=== PATIENT | female | born 1935 | race Caucasian/White ===

== ENCOUNTER 2017-04-18 19:21 | Emergency (ER) | payer MEDICARE, OTHER ==
[~2017-04-18 19:21] MED LIST: CITA20TA19 PO; DIAZ5TAB4 PO; FOSAMAX PO; HYDR-507 PO; INDO75CA PO; LOVA40TA2 PO; VITAMIN D PO; VITAMIN E PO; ZOLP5TAB2 PO
== END 2017-04-18 20:00 | disposition left against medical advice (07) ==
LOC: ER 19:22
DX: Z53.21 Procedure and treatment not carried out due to patient leaving prior to being seen by health care provider (principal)

== ENCOUNTER 2017-04-20 04:13 | Inpatient (IN) | payer MEDICARE, OTHER ==
[~2017-04-20] VITALS: Ht 165.1 cm; Wt 70.3 kg
[2017-04-20] MEDS ORDERED: methylPREDNISolone SOD SUCC 125 MG/2 ML VIAL ONE (04:16)
[2017-04-20] MEDS ORDERED: ALBUTEROL SULFATE 2.5 MG/ 0.5 ML NEBU NEB ONE (04:17)
[2017-04-20] MEDS ORDERED: methylPREDNISolone SOD SUCC 125 MG/2 ML VIAL IV ONE (04:17)
[2017-04-20] MEDS ORDERED: CEFTRIAXONE 1 G VIAL ONE (04:22)
[2017-04-20] MEDS ORDERED: MAGNESIUM SULFATE/D5W 100 ML ONE ×2 (04:22→05:57)
[2017-04-20] MEDS ORDERED: IPRATROPIUM BROMIDE 0.5 MG/2.5 ML NEBU ONE (04:23)
[2017-04-20] MEDS ORDERED: ALBUTEROL SULFATE 2.5 MG/ 0.5 ML NEBU ONE (04:23)
[2017-04-20] MEDS: MAGNESIUM SULFATE/D5W 100 ML IV SCH ×2 (04:28→06:01)
[2017-04-20] MEDS ORDERED: IPRATROPIUM BROMIDE 0.5 MG/2.5 ML NEBU NEB ONE (04:30)
[2017-04-20] MEDS ORDERED: CEFTRIAXONE 1 G in IV DEXTROSE 5% 50 ML IV ONE (04:30)
--- NOTE | 2017-04-20 04:30 | NUR ---
Pt BIB [facility] from home w/ c/o respiratory distress/SOB. Upon arrival, pt sat at 85% on room air RT at bedside along w/ ER MD for MSE. Placed on nonrebreather, monitor, pulse ox per order. EKG completed
--- NOTE | 2017-04-20 04:38 | NUR ---
XRAY at pt bedside.
[2017-04-20 04:44] LABS: CARBON DIOXIDE 24 mmol/L (21-32); CHLORIDE 102 mmol/L (98-107); GLUCOSE 139 mg/dL (74-106); POTASSIUM 3.6 mmol/L (3.5-5.1); UREA NITROGEN, BLOOD 26 mg/dL (7-18)
[2017-04-20] MEDS ORDERED: ASCO500C18 PO (04:47)
[2017-04-20] MEDS ORDERED: CITA20TA11 PO (04:47)
[2017-04-20] MEDS ORDERED: DIAZ5TAB4 PO (04:47)
[2017-04-20] MEDS ORDERED: CEPH250C PO (04:47)
[2017-04-20] MEDS ORDERED: CALC600T12 PO (04:47)
[2017-04-20] MEDS ORDERED: LOVA40TA2 PO (04:47)
[2017-04-20] MEDS ORDERED: AMIT50TA3 PO (04:47)
[2017-04-20] MEDS ORDERED: CYAN10009 PO (04:47)
[2017-04-20] MEDS ORDERED: OMEG1CAP PO (04:47)
[2017-04-20] MEDS ORDERED: NIFE30TA89 PO (04:47)
[2017-04-20] MEDS ORDERED: ZOLP5TAB8 PO (04:47)
[2017-04-20] MEDS ORDERED: VITAMIN E PO (04:47)
[2017-04-20] MEDS ORDERED: INDO25CA PO (04:47)
[2017-04-20] MEDS ORDERED: [UNRECOGNIZED DRUG - CODE] PO (04:47)
[2017-04-20] MEDS ORDERED: HYDR-3326 PO (04:47)
[2017-04-20 04:52] LABS: ABG HCO3 21.9 mmol/L; ABG PCO2 38.7 mmHg (35.0-45.0); ABG PO2 90.9 mmHg (75.0-100.0); ABG SITE LEFT RADIAL; COHb 1.4 % (0.5-1.5); MetHb 0.4 % (0.0-1.5); O2Hb 95.4 % (94.0-97.0)
[2017-04-20 04:56] LABS: ALANINE AMINOTRANSFERASE 23 U/L (14-59); ALKALINE PHOSPHATASE 83 U/L (50-136); ASPARTATE AMINOTRANSFERASE 25 U/L (15-37); BILIRUBIN,TOTAL 0.4 mg/dL (0.2-1.0); CREATINE KINASE, TOTAL 36 U/L (26-192); TOTAL PROTEIN, SERUM 7.3 g/dL (6.4-8.2)
--- NOTE | 2017-04-20 04:59 | NUR ---
Lab at bedside.
[2017-04-20 05:11] LABS: BASOPHILS % (AUTO) 0.1 % (0.0-2.0); EOSINOPHILS # (AUTO) 0.2 K/uL (0.0-0.7); EOSINOPHILS % (AUTO) 1.6 % (0.0-7.0); HEMATOCRIT 40.8 % (31.2-41.9); HEMOGLOBIN 13.7 g/dL (10.9-14.3); LYMPHOCYTES # (AUTO) 1.2 K/uL (20.0-40.0); LYMPHOCYTES % (AUTO) 12.9 % (20.5-51.5); MEAN CORPUSCULAR HEMOGLOBIN 29.8 uug (24.7-32.8); MEAN CORPUSCULAR HGB CONC 34 g/dL (32.3-35.6); MEAN CORPUSCULAR VOLUME 88.7 fL (75.5-95.3); MONOCYTES # (AUTO) 0.8 K/uL (2.0-10.0); NEUTROPHILS # (AUTO) 7.3 K/uL (1.8-8.9); NEUTROPHILS % (AUTO) 77.4 % (38.5-71.5); PLATELET COUNT (AUTO) 163 K/uL (179-408); WHITE BLOOD COUNT (AUTO) 9.4 K/uL (3.8-11.8)
--- NOTE | 2017-04-20 05:19 | NUR ---
RT at bedside.
[2017-04-20] MEDS ORDERED: Z GUARD REMEDY PASTE 57 GM TUBE TOP PRN (06:30)
[2017-04-20] MEDS ORDERED: HYDROCODONE/APAP 5-325MG TABLET PO PRN (06:30)
[2017-04-20] MEDS ORDERED: ONDANSETRON 4 MG/2 ML VIAL IV PRN (06:30)
[2017-04-20] MEDS ORDERED: MAGNESIUM HYDROXIDE 30 ML LIQUID UDC PO PRN (06:30)
[2017-04-20] MEDS ORDERED: LEVOFLOXACIN 750MG/D5W 750 MG in PREMIXED 1 EACH IV SCH (06:30)
--- NOTE | 2017-04-20 06:46 | NUR ---
Pt resting in position of comfort w/ eyes closed. No distress noted at this time. at bedside.
--- NOTE | 2017-04-20 06:58 | NUR ---
Report given to Daisha HEARN.
[2017-04-20] MEDS ORDERED: IOHEXOL 350 100 ML INFUS..BTL ONE (07:02)
[2017-04-20] MEDS ORDERED: IV NORMAL SALINE 100 ML ONE (07:03)
--- NOTE | 2017-04-20 07:15 | NUR ---
Patient is now waiting for transfer to floor after change of shift, nursing hands off report was given to rn charge Edel by previous nurse Jennifer & ZEE Guadarrama, pending admitting papers (roll-over status) by ER regitration/admitting staff at this time. 1st contact w/ pt- sleeping , easily arousable, respiration:nonlabored w/ simple mask at 10liters/min, skin warm and dry, family is at bedside espressing satisfaction with ER care.
[2017-04-20] MEDS ORDERED: LEVOFLOXACIN 750MG/D5W 150 ML IV ONE (07:32)
[2017-04-20] MEDS: IV NS 1000 ML 1,000 ML IV PRN (07:50)
[2017-04-20 08:11] VITALS: BP 137/70
--- NOTE | 2017-04-20 08:25 | NUR ---
Pt received from ER with . Pt stable and nad noted upon admission. Oriented pt to the room and demonstrated proper use of call carrillo. Pt and verbalized understanding.
[2017-04-20 11:46] VITALS: BP 103/60
[2017-04-20] MEDS: methylPREDNISolone SOD SUCC 40 MG/ML VIAL IV SCH ×2 (12:55→16:43)
[2017-04-20] MEDS ORDERED: DIAZEPAM 5 MG TABLET PO PRN (15:30)
[2017-04-20 15:39] VITALS: BP 117/78
--- NOTE | 2017-04-20 15:45 | NUR ---
Telephone consent for Pulmonary VQ Scan signed by Seamus () over the telephone. alert and oriented during our conversation and is aware of the procedure to be done.
--- NOTE | 2017-04-20 17:10 | NUR ---
Pt left for [place] Pulmonary VQ scan via wheelchair with radiologist.
--- NOTE | 2017-04-20 17:51 | NUR ---
Pt returned from [place] Pulmonary VQ with radiologist via wheelchair. Pt stable and nad noted upon returning to the floor.
--- NOTE | 2017-04-20 19:30 | NUR ---
RECEIVED PT AWAKE, ALERT, ORIENTED X3. PT COUGHING. PT AWARE THAT SHE NEEDS TO HAVE URINE SAMPLE. PT SHOWS NO SIGNS OF ACUTE DISTRESS. BED ALARM ON, CALL LIGHT WITHIN REACH. WILL CONTINUE TO MONITOR.
[2017-04-20 20:37] LABS: *BILIRUBIN,URIN NEGATIVE (NEGATIVE); *BLOOD, URINE NEGATIVE (NEGATIVE); *CLARITY,URINE SLIGHTLY CLOUDY (CLEAR); *COLOR,URINE YELLOW (YELLOW); *KETONES,URINE NEGATIVE (NEGATIVE); *PROTEIN,URINE NEGATIVE (NEGATIVE); *UROBILINOGEN,URINE 0.2 E.U./dl (NORMAL); LEUKOCYTE ESTERASE ,URINE NEGATIVE (NEGATIVE); NITRITE, URINE NEGATIVE (NEGATIVE); PH,URINE 5.5 (5.0-8.0); UGLUCOSE NEGATIVE (NEGATIVE)
[2017-04-20 20:57] LABS: BACTERIA,URINE NONE SEEN /HPF (NONE SEEN); RBC,URINE 0-3 /HPF (0-3); SQUAMOUS EPITHELIAL CELL,UR FEW /HPF (NONE SEEN); WBC,URINE 0-3 /HPF (0-3)
[2017-04-20 20:59] VITALS: BP 132/72
[2017-04-20] MEDS: INDOMETHACIN 25 MG CAPSULE PO SCH (21:16)
[2017-04-20] MEDS: OMEGA-3 FATTY ACIDS/FISH OIL CAPSULE PO SCH (21:16)
[2017-04-20] MEDS: ASCORBIC ACID 500 MG TABLET PO SCH (21:17)
[2017-04-20] MEDS: CYANOCOBALAMIN 1,000 MCG TABLET PO SCH (21:17)
[2017-04-20] MEDS: CALCIUM CARBONATE 600 MG TABLET PO SCH (21:18)
[2017-04-20] MEDS: CITALOPRAM 20 MG TABLET PO SCH (21:18)
[2017-04-20] MEDS: AMITRIPTYLINE HCL 50 MG TABLET PO SCH (21:18)
[2017-04-20] MEDS: NIFEdipine XL 30 MG TABSR PO SCH (21:18)
[2017-04-20] MEDS: ATORVASTATIN 10 MG TABLET PO SCH (21:18)
[2017-04-20] MEDS: ENOXAPARIN SODIUM 40 MG/0.4 ML DISP.SYRIN SQ SCH (21:30)
[2017-04-20] MEDS ORDERED: IPRATROPIUM BROMIDE 0.5 MG/2.5 ML NEBU NEB PRN (23:45)
[2017-04-20] MEDS ORDERED: BENZONATATE 100 MG CAPSULE PO ONE (23:45)
--- NOTE | 2017-04-20 23:45 | NUR ---
PT COUGHING CONTINUOUSLY. ORDERED BREATHING TREATMENT FOR PT AND TESSALON MEDICATION.
[2017-04-21] MEDS: ALBUTEROL SULFATE 2.5 MG/3 ML NEBU NEB PRN ×2 (00:06→06:14)
[2017-04-21] MEDS: IPRATROPIUM BROMIDE 0.5 MG/2.5 ML NEBU NEB PRN ×2 (00:06→06:14)
[2017-04-21 00:24] VITALS: BP 138/72
[2017-04-21 04:00] VITALS: BP 118/67
[2017-04-21] MEDS: BENZONATATE 100 MG CAPSULE PO SCH ×3 (06:00→21:40)
--- NOTE | 2017-04-21 06:15 | NUR ---
PT SLEPT INTERMITTENTLY BECAUSE OF COUGHING. BREATHING TREATMENT AND COUGH MEDICATION HELPED. ALL PRESCRIBED MEDICATION GIVEN AND PT TOLERATED IT WELL. CALL LIGHT WITHIN REACH AND BED ALARM ON AND IN LOW POSITION.SAFETY AND COMFORT PROVIDED.
[2017-04-21 06:36] LABS: BASOPHILS % (AUTO) 0.1 % (0.0-2.0); LYMPHOCYTES # (AUTO) 0.6 K/uL (20.0-40.0); LYMPHOCYTES % (AUTO) 4.8 % (20.5-51.5); MEAN CORPUSCULAR HEMOGLOBIN 29.4 uug (24.7-32.8); MEAN CORPUSCULAR HGB CONC 33 g/dL (32.3-35.6); MONOCYTES # (AUTO) 0.5 K/uL (2.0-10.0); MONOCYTES % (AUTO) 4.4 % (0.0-11.0); NEUTROPHILS % (AUTO) 90.7 % (38.5-71.5); PLATELET COUNT (AUTO) 172 K/uL (179-408); RED BLOOD CELL COUNT(AUTO) 3.94 MIL/uL (3.63-4.92)
[2017-04-21 06:53] LABS: CARBON DIOXIDE 26 mmol/L (21-32); CHLORIDE 108 mmol/L (98-107); CHOLESTEROL 123 mg/dL (<200); CREATININE 0.7 mg/dL (0.6-1.3); GLUCOSE 142 mg/dL (74-106); HDL CHOLESTEROL 90 mg/dL (40-60); MAGNESIUM 2.1 mg/dL (1.8-2.4); POTASSIUM 3.6 mmol/L (3.5-5.1); TRIGLYCERIDES 46 MG/DL (30-150); UREA NITROGEN, BLOOD 23 mg/dL (7-18)
[2017-04-21 06:55] LABS: HEMATOCRIT 34.7 % (31.2-41.9); HEMOGLOBIN 11.6 g/dL (10.9-14.3); WHITE BLOOD COUNT (AUTO) 12.2 K/uL (3.8-11.8)
[2017-04-21 07:06] LABS: THYROID STIMULATING HORMONE 0.524 mIU/mL (0.358-3.740)
[2017-04-21] MEDS: methylPREDNISolone SOD SUCC 40 MG/ML VIAL IV SCH ×3 (08:36→17:34)
[2017-04-21 11:45] VITALS: BP 123/66
[2017-04-21 15:57] VITALS: BP_SYST 102; BP_SYST 137; BP_DIAS 67; BP_DIAS 84
[2017-04-21] MEDS: ALBUTEROL SULFATE 2.5 MG/ 0.5 ML NEBU NEB SCH ×3 (17:03→22:32)
[2017-04-21] MEDS: IPRATROPIUM BROMIDE 0.5 MG/2.5 ML NEBU NEB SCH ×3 (17:03→22:32)
--- NOTE | 2017-04-21 18:09 | NUR ---
PT OBSERVED RESTING IN BED CALM, COOPERATIVE, NEW IV IN RIGHT FOREARM 20 GAUGE INTACT. NO SIGNS OF RESPIRATORY DISTRESS. CONTINUE TO MONITOR.
--- NOTE | 2017-04-21 19:15 | NUR ---
RECEIVED PT AWAKE, ALERT AND ORIENTEDX4. PT IS ON HER BREATHING TREATMENT. PT SAID SHE'S THINKING SHE MIGHT HAVE SORETHROAT. PT HAS COUGH.CALL LIGHT WITHIN REACH. BED ALARM ON AND IN LOW POSITION. WILL CONTINUE TO MONITOR.
[2017-04-21 20:00] VITALS: BP 130/57
[2017-04-21] MEDS: CYANOCOBALAMIN 1,000 MCG TABLET PO SCH (21:00)
[2017-04-21] MEDS: ASCORBIC ACID 500 MG TABLET PO SCH (21:36)
[2017-04-21] MEDS: OMEGA-3 FATTY ACIDS/FISH OIL CAPSULE PO SCH (21:37)
[2017-04-21] MEDS: INDOMETHACIN 25 MG CAPSULE PO SCH (21:37)
[2017-04-21] MEDS: CALCIUM CARBONATE 600 MG TABLET PO SCH (21:37)
[2017-04-21] MEDS: ATORVASTATIN 10 MG TABLET PO SCH (21:37)
[2017-04-21] MEDS: NIFEdipine XL 30 MG TABSR PO SCH (21:39)
[2017-04-21] MEDS: AMITRIPTYLINE HCL 50 MG TABLET PO SCH (21:39)
[2017-04-21] MEDS: CITALOPRAM 20 MG TABLET PO SCH (21:39)
[2017-04-21] MEDS: ENOXAPARIN SODIUM 40 MG/0.4 ML DISP.SYRIN SQ SCH (21:50)
[2017-04-21] MEDS: IV NS 1000 ML 1,000 ML IV PRN (23:18)
[2017-04-22] VITALS: BP 130/64
[2017-04-22] MEDS: ACETAMINOPHEN 325 MG TABLET PO PRN (00:26)
--- NOTE | 2017-04-22 01:13 | NUR ---
PT TEMP WAS 99.3. TYLENOL GIVEN TO THE PT.TEMP SUBSIDE TO 98"
[2017-04-22] MEDS: ALBUTEROL SULFATE 2.5 MG/ 0.5 ML NEBU NEB SCH ×6 (02:35→23:00)
[2017-04-22] MEDS: IPRATROPIUM BROMIDE 0.5 MG/2.5 ML NEBU NEB SCH ×6 (02:35→23:00)
[2017-04-22 04:00] VITALS: BP 144/72
[2017-04-22] MEDS: BENZONATATE 100 MG CAPSULE PO SCH ×3 (05:14→21:24)
--- NOTE | 2017-04-22 06:03 | NUR ---
PT SLEPT THROUGHOUT THE SHIFT. PT SHOWS NO SIGNS OF RESPIRATORY DISTRESS. PT IS AFEBRILE. ALL PRESCRIBED MEDICATION GIVEN. PT TOLERATED IT WELL. PT CALL LIGHT WITHIN REACH. BED ALARM ON AND IN LOW POSITION. SAFETY AND COMFORT PROVIDED.CONTINUE TO CARE OF PLAN.
[2017-04-22 06:25] LABS: BASOPHILS % (AUTO) 0.1 % (0.0-2.0); HEMATOCRIT 33.5 % (31.2-41.9); HEMOGLOBIN 11.3 g/dL (10.9-14.3); LYMPHOCYTES # (AUTO) 0.7 K/uL (20.0-40.0); LYMPHOCYTES % (AUTO) 6.4 % (20.5-51.5); MEAN CORPUSCULAR HEMOGLOBIN 29.6 uug (24.7-32.8); MEAN CORPUSCULAR HGB CONC 34 g/dL (32.3-35.6); MEAN CORPUSCULAR VOLUME 87.6 fL (75.5-95.3); MONOCYTES # (AUTO) 0.7 K/uL (2.0-10.0); MONOCYTES % (AUTO) 6.5 % (0.0-11.0); NEUTROPHILS # (AUTO) 9.8 K/uL (1.8-8.9); PLATELET COUNT (AUTO) 184 K/uL (179-408); RED BLOOD CELL COUNT(AUTO) 3.82 MIL/uL (3.63-4.92); WHITE BLOOD COUNT (AUTO) 11.3 K/uL (3.8-11.8)
[2017-04-22 06:35] LABS: CARBON DIOXIDE 26 mmol/L (21-32); CHLORIDE 107 mmol/L (98-107); CREATININE 0.7 mg/dL (0.6-1.3); GLUCOSE 134 mg/dL (74-106); PHOSPHOROUS 2.3 mg/dL (2.5-4.9); POTASSIUM 3.3 mmol/L (3.5-5.1); UREA NITROGEN, BLOOD 16 mg/dL (7-18)
--- NOTE | 2017-04-22 06:55 | NUR ---
ENDORSED TO DAYSHIFT NURSE THAT THE POTASSIUM WAS 3.3 L FROM 3.6 YESTERDAY AND PHOSPHORUS WAS 2.3L FROM 3.0.
[2017-04-22] MEDS: LEVOFLOXACIN 750MG/D5W 750 MG in PREMIXED 1 EACH IV SCH (07:54)
[2017-04-22] MEDS: BENZOCAINE/MENTH/CETYLPYRD LOZENGE MM PRN ×4 (07:54→17:18)
[2017-04-22] MEDS: methylPREDNISolone SOD SUCC 40 MG/ML VIAL IV SCH ×3 (08:00→17:17)
[2017-04-22] MEDS ORDERED: POTASSIUM CHLORIDE 20 MEQ TAB.PRT.SR PO ONE (11:15)
[2017-04-22 12:01] VITALS: BP 132/63
[2017-04-22] MEDS: ACETYLCYSTEINE 20% 800 MG/4 ML VIAL NEB SCH ×3 (15:30→23:00)
[2017-04-22 16:15] VITALS: BP 145/76
[2017-04-22] MEDS ORDERED: NEUTRA PHOS PACKET PO ONE (16:15)
--- NOTE | 2017-04-22 18:06 | NUR ---
THE PLAN FOR TODAY WAS TO JOSE PT OXYGEN. PT WAS ON 5L OF OXYGEN AND IS NOW ON 2.5L. PT SHOWS NO SIGNS OF RESPIRATORY DISTRESS AT THIS TIME. PT HAS SORE THROAT AND COUGHING, PT GIVEN CEPACOL, MEDICATION EFFECTIVE.PT PERFORMS ADLS TOLERATED. PT WORKED WITH PT TODAY AND STATES THAT PT IS MINIMAL ASSIST. PT IS UNSTEADY. CONTINUE TO MONITOR.
[2017-04-22] MEDS: IV NS 1000 ML 1,000 ML IV PRN (18:50)
--- NOTE | 2017-04-22 19:35 | NUR ---
RECEIVED PT IN BED. AWAKE, ALERT AND ORIENTED X4. CALM AND PLEASANT. JUST STARTED TO EAT HER DINNER. DENIES ANY PAIN OR SOB. o2 AT 2.5LPM VIA NC IN PLACE. IV SITE INTACT AND PATENT , IVF INFUSING. BED ON LOW POSITION AND BED ALARM ON. SAFETY MEASURE INITIATED. CALL SPARKS WITHIN REACHED.
[2017-04-22 20:30] VITALS: BP 149/61
[2017-04-22] MEDS: ASCORBIC ACID 500 MG TABLET PO SCH (20:35)
[2017-04-22] MEDS: OMEGA-3 FATTY ACIDS/FISH OIL CAPSULE PO SCH (20:35)
[2017-04-22] MEDS: INDOMETHACIN 25 MG CAPSULE PO SCH (20:35)
[2017-04-22] MEDS: CALCIUM CARBONATE 600 MG TABLET PO SCH (20:36)
[2017-04-22] MEDS: CITALOPRAM 20 MG TABLET PO SCH (20:36)
[2017-04-22] MEDS: AMITRIPTYLINE HCL 50 MG TABLET PO SCH (20:36)
[2017-04-22] MEDS: CYANOCOBALAMIN 1,000 MCG TABLET PO SCH (20:36)
[2017-04-22] MEDS: NIFEdipine XL 30 MG TABSR PO SCH (20:36)
[2017-04-22] MEDS: ATORVASTATIN 10 MG TABLET PO SCH (20:36)
[2017-04-22] MEDS: ENOXAPARIN SODIUM 40 MG/0.4 ML DISP.SYRIN SQ SCH (20:39)
[2017-04-22 23:52] VITALS: BP 153/78
--- NOTE | 2017-04-23 | NUR ---
Patient asleep. Not in acute distress. on contious O2 at 3LPM via NC. Sinus rhtym on Tele 90/min. appears comfortable in bed. iv site intact and patent. IV fluids infusing. Continue to monitor. Safety precaution maintained. Call carrillo within reached.
[2017-04-23] MEDS: ACETAMINOPHEN 325 MG TABLET PO PRN (02:49)
[2017-04-23] MEDS: BENZOCAINE/MENTH/CETYLPYRD LOZENGE MM PRN ×3 (02:50→10:52)
[2017-04-23] MEDS: ALBUTEROL SULFATE 2.5 MG/ 0.5 ML NEBU NEB SCH ×7 (02:58→22:58)
[2017-04-23] MEDS: IPRATROPIUM BROMIDE 0.5 MG/2.5 ML NEBU NEB SCH ×7 (02:58→22:58)
[2017-04-23 04:00] VITALS: BP 148/78
[2017-04-23] MEDS: BENZONATATE 100 MG CAPSULE PO SCH ×3 (05:20→21:03)
--- NOTE | 2017-04-23 06:00 | NUR ---
pt alert and oriented x4. Slept well last night. Denies any pain or SOB. On O2 taper to 2LPM via NC. O2 sat at 95%. With occasional non-productive cough noted. Cephacol lozenges given prn and effective. Denies any chest pain. Minimal edema on BLE. Sinus tach on tele. 91/min. IV on right FA intact and patent. IV infusing. Safety and comfort measure maintained throughout shift.
[2017-04-23 07:06] LABS: CARBON DIOXIDE 31 mmol/L (21-32); CHLORIDE 105 mmol/L (98-107); CREATININE 0.7 mg/dL (0.6-1.3); GLUCOSE 113 mg/dL (74-106); PHOSPHOROUS 3.2 mg/dL (2.5-4.9); POTASSIUM 3.5 mmol/L (3.5-5.1); UREA NITROGEN, BLOOD 14 mg/dL (7-18)
[2017-04-23] MEDS: ACETYLCYSTEINE 20% 800 MG/4 ML VIAL NEB SCH ×3 (07:35→22:58)
--- NOTE | 2017-04-23 07:40 | NUR ---
MUCOMYST NOT GIVEN AT THIS TIME. MUCOMYST NOT AVAILABLE IN [facility]. PHARMACY AWARE.
[2017-04-23 08:00] VITALS: BP 144/80
[2017-04-23] MEDS: methylPREDNISolone SOD SUCC 40 MG/ML VIAL IV SCH ×3 (08:00→16:13)
[2017-04-23] MEDS ORDERED: POTASSIUM CHLORIDE 20 MEQ TAB.PRT.SR PO ONE (10:30)
[2017-04-23 12:00] VITALS: BP 140/78
[2017-04-23 16:00] VITALS: BP_SYST 128; BP_SYST 160; BP_DIAS 54; BP_DIAS 84
--- NOTE | 2017-04-23 18:16 | NUR ---
PT OBSERVED IN ROOM RESTING WITH AT THE BEDSIDE. PT SHOWS NO SIGNS OF DISTRESS. TELEMETRY D/C. PT CALM, COOPERATIVE, MEDICATION COMPLIANT, BED AT LOWEST LOCKED POSITION. O2 TAPERED PER ORDER AND RT . PT IS ON 2L NASAL CANULA. O2 SATURATION AT 96-99%.CONTINUE TO MONITOR.
[2017-04-23 20:00] VITALS: BP 135/90
--- NOTE | 2017-04-23 20:00 | NUR ---
RECEIVED PATIENT AWAKE IN BED. PATIENT IS A/O X4. VERY PLEASANT WHEN APPROACHED. DENIES ANY PAIN OR DISCOMFORT. NO RESP. DISTRESS NOTED. ON O2 2L NC SATING WELL. IVF INFUSING WELL TO RIGHT FA. VS WNL. CALL LIGHT IN REACH. ALL NEEDS ATTENDED. WILL CONTINUE TO MONITOR AND ASSESS.
[2017-04-23] MEDS: AMITRIPTYLINE HCL 50 MG TABLET PO SCH (20:42)
[2017-04-23] MEDS: OMEGA-3 FATTY ACIDS/FISH OIL CAPSULE PO SCH (20:42)
[2017-04-23] MEDS: INDOMETHACIN 25 MG CAPSULE PO SCH (20:42)
[2017-04-23] MEDS: CALCIUM CARBONATE 600 MG TABLET PO SCH (20:42)
[2017-04-23] MEDS: CITALOPRAM 20 MG TABLET PO SCH (20:42)
[2017-04-23] MEDS: NIFEdipine XL 30 MG TABSR PO SCH (20:43)
[2017-04-23] MEDS: ASCORBIC ACID 500 MG TABLET PO SCH (20:43)
[2017-04-23] MEDS: CYANOCOBALAMIN 1,000 MCG TABLET PO SCH (20:43)
[2017-04-23] MEDS: ATORVASTATIN 10 MG TABLET PO SCH (20:43)
[2017-04-23] MEDS: ENOXAPARIN SODIUM 40 MG/0.4 ML DISP.SYRIN SQ SCH (20:44)
[2017-04-24] MEDS: IV NS 1000 ML 1,000 ML IV PRN (01:30)
[2017-04-24] MEDS: IPRATROPIUM BROMIDE 0.5 MG/2.5 ML NEBU NEB SCH ×4 (02:49→15:20)
[2017-04-24] MEDS: ALBUTEROL SULFATE 2.5 MG/ 0.5 ML NEBU NEB SCH ×4 (02:49→15:20)
[2017-04-24 04:00] VITALS: BP 152/80
[2017-04-24] MEDS: BENZONATATE 100 MG CAPSULE PO SCH ×2 (05:15→13:25)
[2017-04-24 06:56] LABS: BASOPHILS % (AUTO) 0.1 % (0.0-2.0); EOSINOPHILS % (AUTO) 0.1 % (0.0-7.0); HEMATOCRIT 38.9 % (31.2-41.9); HEMOGLOBIN 13.1 g/dL (10.9-14.3); LYMPHOCYTES # (AUTO) 1.4 K/uL (20.0-40.0); LYMPHOCYTES % (AUTO) 11.4 % (20.5-51.5); MEAN CORPUSCULAR HEMOGLOBIN 29.5 uug (24.7-32.8); MEAN CORPUSCULAR HGB CONC 34 g/dL (32.3-35.6); MEAN CORPUSCULAR VOLUME 87.5 fL (75.5-95.3); MONOCYTES # (AUTO) 1.1 K/uL (2.0-10.0); MONOCYTES % (AUTO) 8.7 % (0.0-11.0); NEUTROPHILS # (AUTO) 9.6 K/uL (1.8-8.9); NEUTROPHILS % (AUTO) 79.7 % (38.5-71.5); PLATELET COUNT (AUTO) 238 K/uL (179-408); RED BLOOD CELL COUNT(AUTO) 4.45 MIL/uL (3.63-4.92); WHITE BLOOD COUNT (AUTO) 12.1 K/uL (3.8-11.8)
--- NOTE | 2017-04-24 07:01 | NUR ---
PATIENT ASLEEP. NO RESP. DISTRESS NOTED. CONTINUED ON O2 2L NC. CALL LIGHT IN REACH .ALL NEEDS ATTENDED. WILL CONTINUE TO MONITOR.
[2017-04-24 07:15] LABS: ALANINE AMINOTRANSFERASE 38 U/L (14-59); ALKALINE PHOSPHATASE 72 U/L (50-136); ASPARTATE AMINOTRANSFERASE 27 U/L (15-37); BILIRUBIN,TOTAL 0.3 mg/dL (0.2-1.0); CARBON DIOXIDE 26 mmol/L (21-32); CHLORIDE 104 mmol/L (98-107); CREATININE 0.9 mg/dL (0.6-1.3); GLUCOSE 108 mg/dL (74-106); MAGNESIUM 2.1 mg/dL (1.8-2.4); PHOSPHOROUS 3.4 mg/dL (2.5-4.9); POTASSIUM 3.4 mmol/L (3.5-5.1); TOTAL PROTEIN, SERUM 6.7 g/dL (6.4-8.2); UREA NITROGEN, BLOOD 20 mg/dL (7-18)
[2017-04-24] MEDS: ACETYLCYSTEINE 20% 800 MG/4 ML VIAL NEB SCH (07:24)
--- NOTE | 2017-04-24 07:30 | NUR ---
Received client in bed awake, alert and oriented times four. Client is noted to be reading a book and noted with a dry, non productive cough. No signs and symptoms of SOB, distress or discomfort. Client states she is in no pain at this time. IV hydration running. Bed at lowest position for safety and call light within reach for assistance.
[2017-04-24] MEDS: methylPREDNISolone SOD SUCC 40 MG/ML VIAL IV SCH ×2 (08:06→12:26)
[2017-04-24] MEDS: LEVOFLOXACIN 750MG/D5W 750 MG in PREMIXED 1 EACH IV SCH (08:06)
--- NOTE | 2017-04-24 09:15 | NUR ---
Noted client with physical therapist. Client is seen walking without assistive devices and stating at 98% at 2L
[2017-04-24 09:43] LABS: LYMPHOCYTES % (MANUAL) 19 % (20-40); MONOCYTES % (MANUAL) 7 % (2-10); NEUTROPHILS % (MANUAL) 74 % (42-75)
[2017-04-24 11:06] VITALS: BP 128/66
--- NOTE | 2017-04-24 13:21 | NUR ---
Client is 96% at RA as request by Dr before discharge orders
[2017-04-24] MEDS ORDERED: POTASSIUM CHLORIDE 20 MEQ TAB.PRT.SR PO ONE (14:30)
[2017-04-24 15:11] VITALS: BP 142/70
--- NOTE | 2017-04-24 15:20 | NUR ---
PT REFUSED ALBUTEROL/ATROVENT TX. PT IS GETTING READY TO BE DISCHARGED. STATED THAT SHE DOES NOT WANT THE TX BEFORE SHE LEAVES. NO SOB NOTED.
[2017-04-24] MEDS: ACETAMINOPHEN 325 MG TABLET PO PRN (15:30)
[2017-04-24] MEDS ORDERED: LEVO500T2 PO (15:48)
[2017-04-24] MEDS ORDERED: ALBU6.7H INH (15:48)
[2017-04-24] MEDS ORDERED: ACID1TAB4 PO (15:48)
[2017-04-24] MEDS ORDERED: LOVA20TA2 PO (15:48)
[2017-04-24] MEDS ORDERED: METH4TAB3 PO (15:48)
--- NOTE | 2017-04-24 16:30 | NUR ---
Client is being discharge with discharge orders from MD. Client is in stable condition with no SOB, pain, distress or discomfort noted. VS WNL. Client is being guided down satires via wheelchair with the assistance of a MORTGAGE OPERATIONS MANAGER. Client's Seamus will be providing transportation home. Client is aware that she is discharged with home health, all papers signed for and petit arrangement given to her to take home
== END 2017-04-24 16:30 | disposition home health service (06) | DRG 871 ==
LOC: ER 04:15 → TELE 06:20 → MED 04-23 15:56
PROVIDERS: ADMIT Nurse Practitioner Acute Care; ATTEND Nurse Practitioner Acute Care
DX: A41.9 Sepsis, unspecified organism (principal); J18.9 Pneumonia, unspecified organism; J96.01 Acute respiratory failure with hypoxia; G93.41 Metabolic encephalopathy; R65.20 Severe sepsis without septic shock; Z79.899 Other long term (current) drug therapy; E78.5 Hyperlipidemia, unspecified; G89.29 Other chronic pain; M06.9 Rheumatoid arthritis, unspecified; M54.5 Low back pain; Z91.013 Allergy to seafood; T49.0X5A Adverse effect of local antifungal, anti-infective and anti-inflammatory drugs, initial encounter; Y92.89 Other specified places as the place of occurrence of the external cause; R73.9 Hyperglycemia, unspecified; F32.9 Major depressive disorder, single episode, unspecified; F41.9 Anxiety disorder, unspecified; N32.81 Overactive bladder; R79.1 Abnormal coagulation profile; E83.39 Other disorders of phosphorus metabolism; E87.6 Hypokalemia; I10 Essential (primary) hypertension
CPT/HCPCS: 36415; 36600; 70030-TC; 71045; 78579; 83605; 83735; 84100; 84443; 85025; 85610; 87040; 87086; 93005; 94640; 94664; 97116; 97530; A4663; A9540; A9567; J0696; J1650; J1956; J2920; J2930; J3475; J3490; J3590; J7030; J7060; Q9967

== ENCOUNTER 2018-04-09 06:53 | Emergency (ER) | payer MEDICARE, OTHER ==
[~2018-04-09] VITALS: Ht 162.6 cm; Wt 68.0 kg
[~2018-04-09 06:53] MED LIST changes: +ACID1TAB4 PO; +ALBU6.7H INH; +AMIT50TA3 PO; +ASCO500C18 PO; +CALC600T12 PO; +CITA20TA16 PO; -CITA20TA19 PO; +CYAN-51 PO; -FOSAMAX PO; +HYDR-3326 PO; -HYDR-507 PO; +INDO25CA18 PO; -INDO75CA PO; +LEVO500T2 PO; +LOVA20TA2 PO; -LOVA40TA2 PO; +METH4TAB3 PO; +NIFE30TA89 PO; +OMEG1CAP PO; -VITAMIN D PO; -VITAMIN E PO; -ZOLP5TAB2 PO; +ZOLP5TAB8 PO; +[UNRECOGNIZED DRUG - CODE] PO
--- NOTE | 2018-04-09 07:23 | NUR ---
pt is in room #2a. dr Jimenez evaluated the pt.
--- NOTE | 2018-04-09 08:15 | NUR ---
PT WAS D/C'D TO HOME, D/C INSTRUCTIONS GIVEN TO THE PT. GAIT IS STABLE. NO S/S OF DISTRESS AT THIS TIME.
[2018-04-09 08:16] VITALS: BP 132/82
== END 2018-04-09 08:17 | disposition home or self-care (01) ==
LOC: ER 06:55
DX: S40.011A Contusion of right shoulder, initial encounter (principal); E78.00 Pure hypercholesterolemia, unspecified; I11.0 Hypertensive heart disease with heart failure; I50.9 Heart failure, unspecified; G89.29 Other chronic pain; M54.9 Dorsalgia, unspecified; Z88.0 Allergy status to penicillin; Z88.1 Allergy status to other antibiotic agents; Z88.8 Allergy status to other drugs, medicaments and biological substances; Z91.013 Allergy to seafood; Z79.2 Long term (current) use of antibiotics; Z79.899 Other long term (current) drug therapy; W10.9XXA Fall (on) (from) unspecified stairs and steps, initial encounter; Y93.89 Activity, other specified; Y92.89 Other specified places as the place of occurrence of the external cause; Y99.8 Other external cause status
CPT/HCPCS: 70450; 73030; A4663

== ENCOUNTER 2018-07-05 19:40 | Inpatient (IN) | payer MEDICARE, OTHER ==
[~2018-07-05] VITALS: Ht 165.1 cm; Wt 66.7 kg
[~2018-07-05 19:40] MED LIST changes: -CYAN-51 PO; +CYAN10009 PO
[2018-07-05] MEDS ORDERED: CHARCOAL ACTIVATED (WITHOUT SORBITOL) 50 G/240 ML BOTTLE ONE ×2 (19:50→19:51)
[2018-07-05] MEDS ORDERED: CHARCOAL ACTIVATED (WITHOUT SORBITOL) 50 G/240 ML BOTTLE PO ONE (20:00)
--- NOTE | 2018-07-05 20:05 | NUR ---
Called Quarrying Manager for sitter, states no sitter available at this time. Adviced to use security for now. Called security to watch patient.
[2018-07-05 20:07] LABS: BASOPHILS # (AUTO) 0.1 K/uL (0.0-8.0); EOSINOPHILS # (AUTO) 0.2 K/uL (0.0-0.7); EOSINOPHILS % (AUTO) 3.4 % (0.0-7.0); HEMATOCRIT 43.8 % (31.2-41.9); HEMOGLOBIN 14.4 g/dL (10.9-14.3); LYMPHOCYTES # (AUTO) 1.3 K/uL (20.0-40.0); LYMPHOCYTES % (AUTO) 26.3 % (20.5-51.5); MEAN CORPUSCULAR HGB CONC 33 g/dL (32.3-35.6); MEAN CORPUSCULAR VOLUME 88.2 fL (75.5-95.3); MONOCYTES # (AUTO) 0.4 K/uL (2.0-10.0); MONOCYTES % (AUTO) 7.2 % (0.0-11.0); NEUTROPHILS # (AUTO) 3.1 K/uL (1.8-8.9); NEUTROPHILS % (AUTO) 62.1 % (38.5-71.5); PLATELET COUNT (AUTO) 205 K/uL (179-408); RED BLOOD CELL COUNT(AUTO) 4.97 MIL/uL (3.63-4.92)
[2018-07-05 20:09] LABS: CARBON DIOXIDE 22 mmol/L (21-32); CHLORIDE 105 mmol/L (98-107); CREATININE 1.1 mg/dL (0.6-1.3); GLUCOSE 110 mg/dL (74-106); POTASSIUM 4.2 mmol/L (3.5-5.1); UREA NITROGEN, BLOOD 24 mg/dL (7-18)
--- NOTE | 2018-07-05 20:10 | NUR ---
Security at bedside.
[2018-07-05 20:15] LABS: ACETAMINOPHEN 25.8 ug/mL (10-30); ALANINE AMINOTRANSFERASE 28 U/L (14-59); ALKALINE PHOSPHATASE 77 U/L (50-136); ASPARTATE AMINOTRANSFERASE 25 U/L (15-37); BILIRUBIN,DIRECT 0.1 mg/dL (0.0-0.2); BILIRUBIN,TOTAL 0.3 mg/dL (0.2-1.0); TOTAL PROTEIN, SERUM 7.4 g/dL (6.4-8.2)
[2018-07-05 20:17] LABS: ETHANOL < 3 MG/DL (0-0)
--- NOTE | 2018-07-05 20:30 | NUR ---
Pt provided urine sample, sent to lab.
--- NOTE | 2018-07-05 20:34 | NUR ---
Clarrification: Patient took 8 tablets of Percocet 10/325mg
--- NOTE | 2018-07-05 20:37 | NUR ---
Pt desatting to 86% on room air, placed pt on O2@2L/min via nasal cannula. MD notified.
--- NOTE | 2018-07-05 20:42 | NUR ---
Srinivas VERNON Sitter at bedside.
[2018-07-05 20:47] LABS: *AMPHETAMINE, URINE NEGATIVE (NEGATIVE); *BARBITURATE, URINE NEGATIVE (NEGATIVE); *CANNABINOID, URINE NEGATIVE (NEGATIVE); *COCCAINE, URINE NEGATIVE (NEGATIVE); *OPIATE, URINE POSITIVE (NEGATIVE); *PHENCYCLIDINE SCREEN,URINE NEGATIVE (NEGATIVE)
--- NOTE | 2018-07-05 21:05 | NUR ---
Dr. Nguyen speaking with [place] [facility].
--- NOTE | 2018-07-05 22:30 | NUR ---
Xray at bedside.
[2018-07-05] MEDS ORDERED: OXYC-133 PO (23:01)
--- NOTE | 2018-07-05 23:09 | NUR ---
Called [facility] to page Dr. Ernesto Segal.
--- NOTE | 2018-07-05 23:17 | NUR ---
Called Alan [facility] for pt psych evaluation.
--- NOTE | 2018-07-05 23:51 | NUR ---
Alan SAINIW arrived to ER, at bedside for psych evaluation of patient.
--- NOTE | 2018-07-06 01:02 | NUR ---
Called [facility] to page Ashwin Madden NP.
[2018-07-06] MEDS ORDERED: IV NS 1000 ML 1,000 ML IV PRN (01:07)
--- NOTE | 2018-07-06 01:07 | NUR ---
Dr. Nguyen on panel call with Ashwin Madden NP.
[2018-07-06] MEDS ORDERED: ONDANSETRON 4 MG/2 ML VIAL IV PRN (01:15)
[2018-07-06] MEDS ORDERED: MAGNESIUM HYDROXIDE 30 ML LIQUID UDC PO PRN (01:15)
[2018-07-06] MEDS ORDERED: TEMAZEPAM 15 MG CAPSULE PO PRN (01:15)
[2018-07-06] MEDS ORDERED: LORAZEPAM 2 MG/1 ML VIAL IV PRN (01:15)
[2018-07-06] MEDS ORDERED: ACETAMINOPHEN 325 MG TABLET PO PRN (01:15)
--- NOTE | 2018-07-06 01:23 | NUR ---
Report given to Belle HEARN Tele.
--- NOTE | 2018-07-06 02:00 | NUR ---
Received patient from ER. Dx: Acute hypoxic respiratory failure/overdose. Patient is A/Ox4. Able to make needs known. No complaints of pain or SOB, on 2L NC saturating at 97%. Heplock on the left wrist is intact. Patient is ambulatory with assistance, gait is unsteady. Safety measures initiated. Bed is low and locked, Call light is within reach. Will continue with admission process.
[2018-07-06 02:10] VITALS: BP 146/71
--- NOTE | 2018-07-06 06:05 | NUR ---
Patient slept well throughout the night. No signs of acute distress. No complaints of pain or SOB. IVF running on the right forearm. Safety measures given.
--- NOTE | 2018-07-06 07:35 | NUR ---
RECEIVED PATIENT IN BED AWAKE ALERT AND ORIENTED DENIES PAIN OR DISCOMFORTS AT THIS TIE REMAIN ON IVF ORDERED WITH NO S/S OF INFILTERATION ON SITE CALL LIGHTS AND PERSONAL BELONGINGS PLACED WITHIN EASY REACH MADE COMFORTABLE AND WILL CONTINUE TO OBSERVE AND PROVIDE SAFE AND THERAPEUTIC ENVIRONMENTS AT ALL TIMES
[2018-07-06 11:07] VITALS: BP 127/69
--- NOTE | 2018-07-06 11:50 | NUR ---
PATIENT SEEN AND EXAMINED BY DUNG QUEZADA WITH ORDER FOR UA STATED THAT AFTER THE URINE HAS BEED SENT AND CLEARED PATIENT MOST LIKELY WILL BE DISCHARGED HOME TODAY.
[2018-07-06 13:46] LABS: *BILIRUBIN,URIN NEGATIVE (NEGATIVE); *CLARITY,URINE CLEAR (CLEAR); *COLOR,URINE YELLOW (YELLOW); *KETONES,URINE NEGATIVE (NEGATIVE); *UROBILINOGEN,URINE 0.2 E.U./dl (NORMAL); LEUKOCYTE ESTERASE ,URINE 2+ (NEGATIVE); NITRITE, URINE NEGATIVE (NEGATIVE); PH,URINE 5.5 (5.0-8.0); UGLUCOSE NEGATIVE (NEGATIVE)
[2018-07-06 13:50] LABS: *BLOOD, URINE TRACE (NEGATIVE); BACTERIA,URINE MODERATE /HPF (NONE SEEN); RBC,URINE 0-3 /HPF (0-3); SQUAMOUS EPITHELIAL CELL,UR FEW /HPF (NONE SEEN)
--- NOTE | 2018-07-06 13:58 | NUR ---
RESULT OF URINALYSIS OBTAINED FROM THE LAB AND RELAYED TO DUNG PATIENT HAS URINARY TRACT INFECTION PER THE RESULT AND DUNG STATED WILL EVAL AND WRITE PRESCRIPTION PATIENT AWARE AWAITING FOR FINAL ORDERS.
--- NOTE | 2018-07-06 14:50 | NUR ---
PATIENT DISCHARGED PICKED UP BY HER IN SATISFACTORY CONDITION WITH DISCHARGE INSTRUCTIONS AND PRESCRIPTIONS AND HER PERSONAL BELONGINGS AND PATIENT INSTRUCTED TO CONTINUE ATB ORDERED AND CALL FOR AN APPOINTMENT WITH HER PSYCHIATRIST AND SHE EXPRESSED UNDERSTANDING.
== END 2018-07-06 14:50 | disposition home or self-care (01) | DRG 917 ==
LOC: ER 19:44 → TELE3 07-06 01:25 → MEDSURG3 07-06 13:02
PROVIDERS: ADMIT Nurse Practitioner Acute Care; ATTEND Registered Nurse
DX: T40.2X2A Poisoning by other opioids, intentional self-harm, initial encounter (principal); J96.01 Acute respiratory failure with hypoxia; N39.0 Urinary tract infection, site not specified; I50.32 Chronic diastolic (congestive) heart failure; T39.1X2A Poisoning by 4-Aminophenol derivatives, intentional self-harm, initial encounter; E86.0 Dehydration; Y92.099 Unspecified place in other non-institutional residence as the place of occurrence of the external cause; I11.0 Hypertensive heart disease with heart failure; G89.29 Other chronic pain; M54.9 Dorsalgia, unspecified; E78.5 Hyperlipidemia, unspecified; F32.9 Major depressive disorder, single episode, unspecified; F41.9 Anxiety disorder, unspecified; Z88.1 Allergy status to other antibiotic agents; Z88.3 Allergy status to other anti-infective agents; Z88.0 Allergy status to penicillin; Z91.013 Allergy to seafood
CPT/HCPCS: 36415; 71045; 80307; 85025; 93005; A4663; G0378; G0480; G0480-TC; J7030

== ENCOUNTER 2019-11-28 08:57 | Inpatient (IN) | payer MEDICARE, OTHER ==
[~2019-11-28] VITALS: Ht 170.2 cm; Wt 61.2 kg
[~2019-11-28 08:57] MED LIST changes: -ALBU6.7H INH; +ALBU6.7H9 INH; -CALC600T12 PO; +CALC600T35 PO; +CYAN-51 PO; -CYAN10009 PO; -HYDR-3326 PO; +INDO-12 PO; -INDO25CA18 PO; -METH4TAB3 PO; +NIFE-35 PO; -NIFE30TA89 PO
--- NOTE | 2019-11-28 09:11 | NUR ---
PT IS IN ROOM #1B. DR FRANK EVALUATEDTHE PT.
[2019-11-28 09:54] LABS: BASOPHILS # (AUTO) 0.1 K/uL (0.0-8.0); BASOPHILS % (AUTO) 1.1 % (0.0-2.0); EOSINOPHILS # (AUTO) 0.2 K/uL (0.0-0.7); EOSINOPHILS % (AUTO) 3.2 % (0.0-7.0); HEMOGLOBIN 13.6 g/dL (10.9-14.3); LYMPHOCYTES # (AUTO) 1.3 K/uL (20.0-40.0); LYMPHOCYTES % (AUTO) 20.9 % (20.5-51.5); MEAN CORPUSCULAR HEMOGLOBIN 30.3 uug (24.7-32.8); MEAN CORPUSCULAR HGB CONC 34 g/dL (32.3-35.6); MEAN CORPUSCULAR VOLUME 89.4 fL (75.5-95.3); MONOCYTES # (AUTO) 0.5 K/uL (2.0-10.0); MONOCYTES % (AUTO) 7.7 % (0.0-11.0); NEUTROPHILS # (AUTO) 4.1 K/uL (1.8-8.9); NEUTROPHILS % (AUTO) 67.1 % (38.5-71.5); PLATELET COUNT (AUTO) 200 K/uL (179-408); RED BLOOD CELL COUNT(AUTO) 4.47 MIL/uL (3.63-4.92); WHITE BLOOD COUNT (AUTO) 6.1 K/uL (3.8-11.8)
[2019-11-28 10:03] LABS: CREATININE 1.1 mg/dL (0.6-1.3); POTASSIUM 4.1 mmol/L (3.5-5.1)
[2019-11-28 10:09] LABS: BILIRUBIN,DIRECT 0.1 mg/dL (0.0-0.2); BILIRUBIN,TOTAL 0.4 mg/dL (0.2-1.0); TOTAL PROTEIN, SERUM 6.7 g/dL (6.4-8.2)
[2019-11-28] MEDS ORDERED: OXYC-133 PO (13:32)
--- NOTE | 2019-11-28 14:04 | NUR ---
RECEIVED PATIENT FOR ADMISSION 84 YEARS OLD FEMALE BY JOLLY TO ROOM 310 WITH DX OF RIGHT HIP NON DISPLACED FRACTURE PATIENT IS ALERT AND ORIENTED STATED HAS NO PAIN WHILE RESTING.ORIENTED TO ROOM AND PERSONAL BELONGINGS PLACED WITHIN EASY EACH CALLED AND MESSAGE LEFT WITH DR ALVARENGA.
--- NOTE | 2019-11-28 14:26 | NUR ---
report was given to rn m/s. pt was transfered to room #310.
--- NOTE | 2019-11-28 14:27 | NUR ---
DR ALMEIDA STATED WANTS PATIENT ON TELE AND WILL PLACE ALL NEW ORDERS AND NOTED
[2019-11-28] MEDS ORDERED: ONDANSETRON 4 MG/2 ML VIAL IV PRN (14:45)
[2019-11-28] MEDS ORDERED: ACETAMINOPHEN 650 MG SUPP.RECT RC PRN (14:45)
--- NOTE | 2019-11-28 18:00 | NUR ---
TOLERATING DIET ORDERED FED SELF DENIES DISCOMFORTS NO C/O AT THIS TIME
[2019-11-28 18:09] VITALS: BP 136/67
[2019-11-28 20:18] VITALS: BP 125/64
[2019-11-28] MEDS: CITALOPRAM 20 MG TABLET PO SCH (21:39)
[2019-11-28] MEDS: NIFEdipine XL 30 MG TABSR PO SCH (21:40)
[2019-11-28] MEDS: MORPHINE SULFATE 2 MG/1 ML DISP.SYRIN IV PRN (21:43)
[2019-11-28] MEDS: ACETAMINOPHEN 325 MG TABLET PO PRN (23:34)
[2019-11-29 00:43] VITALS: BP 149/67
[2019-11-29 04:12] LABS: *BILIRUBIN,URIN NEGATIVE (NEGATIVE); *COLOR,URINE YELLOW (YELLOW); *KETONES,URINE NEGATIVE (NEGATIVE); *UROBILINOGEN,URINE 0.2 E.U./dl (NORMAL); LEUKOCYTE ESTERASE ,URINE 1+ (NEGATIVE); NITRITE, URINE POSITIVE (NEGATIVE); PH,URINE 6.5 (5.0-8.0); UGLUCOSE NEGATIVE (NEGATIVE)
[2019-11-29 04:19] LABS: *BLOOD, URINE TRACE (NEGATIVE); *CLARITY,URINE SLIGHTLY CLOUDY (CLEAR)
[2019-11-29 04:22] LABS: WBC,URINE 50-80 /HPF (0-3)
[2019-11-29 04:23] LABS: BACTERIA,URINE MANY /HPF (NONE SEEN); SQUAMOUS EPITHELIAL CELL,UR FEW /HPF (NONE SEEN)
[2019-11-29 05:25] VITALS: BP 118/71
[2019-11-29 06:44] LABS: BASOPHILS # (AUTO) 0.1 K/uL (0.0-8.0); EOSINOPHILS # (AUTO) 0.2 K/uL (0.0-0.7); EOSINOPHILS % (AUTO) 3.1 % (0.0-7.0); HEMATOCRIT 40.7 % (31.2-41.9); HEMOGLOBIN 13.7 g/dL (10.9-14.3); LYMPHOCYTES # (AUTO) 1.2 K/uL (20.0-40.0); LYMPHOCYTES % (AUTO) 18.5 % (20.5-51.5); MEAN CORPUSCULAR HEMOGLOBIN 30.2 uug (24.7-32.8); MEAN CORPUSCULAR HGB CONC 34 g/dL (32.3-35.6); MEAN CORPUSCULAR VOLUME 89.6 fL (75.5-95.3); MONOCYTES # (AUTO) 0.5 K/uL (2.0-10.0); MONOCYTES % (AUTO) 8.1 % (0.0-11.0); NEUTROPHILS # (AUTO) 4.4 K/uL (1.8-8.9); NEUTROPHILS % (AUTO) 69.3 % (38.5-71.5); PLATELET COUNT (AUTO) 211 K/uL (179-408); RED BLOOD CELL COUNT(AUTO) 4.54 MIL/uL (3.63-4.92); WHITE BLOOD COUNT (AUTO) 6.3 K/uL (3.8-11.8)
[2019-11-29 06:56] LABS: THYROID STIMULATING HORMONE 5.845 mIU/mL (0.358-3.740)
[2019-11-29 07:06] LABS: BILIRUBIN,TOTAL 0.5 mg/dL (0.2-1.0); MAGNESIUM 2.3 mg/dL (1.8-2.4); PHOSPHOROUS 4.1 mg/dL (2.5-4.9); POTASSIUM 4.4 mmol/L (3.5-5.1); TOTAL PROTEIN, SERUM 6.8 g/dL (6.4-8.2)
[2019-11-29] MEDS ORDERED: PANTOPRAZOLE SODIUM 40 MG VIAL IV SCH (09:00)
[2019-11-29] MEDS: MORPHINE SULFATE 2 MG/1 ML DISP.SYRIN IV PRN (09:28)
[2019-11-29 11:15] VITALS: BP 137/65
--- NOTE | 2019-11-29 11:29 | NUR ---
NEW ORDER NOTED FROM DR ALVARENGA TO START ON IV ATB AND NOTED.
[2019-11-29] MEDS: CEFTRIAXONE 1 G in IV DEXTROSE 5% 50 ML IV SCH (12:05)
--- NOTE | 2019-11-29 13:30 | NUR ---
DR BECK HERE AND SEEN PATIENT WITH ORDER TO OBTAIN CONSCENT FOR SURGERY FOR RIGHT REVISION UNKNOWN IF SAT OR SATURDAY BUT WILL NOTIFY THE NURSE PATIENT AWARE WILL OBTAIN CONSCENT SOON POSSIBLE.
[2019-11-29 15:08] VITALS: BP 119/63
--- NOTE | 2019-11-29 19:30 | NUR ---
RECEIVED PT IN NO ACUTE DISTRESS. PT FORGETFUL NEEDS REORIENTATION. IV INTACT. SAFETY AND COMFORT PROVIDED. WILL CONTINUE TO MONITOR.
[2019-11-29] MEDS: CITALOPRAM 20 MG TABLET PO SCH (20:42)
[2019-11-29] MEDS: NIFEdipine XL 30 MG TABSR PO SCH (20:42)
[2019-11-29 21:01] VITALS: BP 145/76
[2019-11-30] MEDS: MORPHINE SULFATE 2 MG/1 ML DISP.SYRIN IV PRN ×2 (01:28→12:50)
[2019-11-30 01:46] VITALS: BP 153/83
--- NOTE | 2019-11-30 06:00 | NUR ---
AT 0128H PT GIVEN MORPHINE FOR 10/10 PAIN SCALE ON HER RIGHT HIP. AFTER AN HOUR PT PAIN SUBSIDED. PT TOLERATED IT WELL. PT SLEPT INTERMITTENTLY. PRESCRIBED MEDICATION GIVEN AND PT TOLERATED IT WELL. PT HAD EPISODES OF FORGETFULNESS. SHE IS STATING SHE IS KEPT CAPTIVE AND WANTS TO GO HOME. PT NEEDS REORIENTATION. SAFETY AND COMFORT PROVIDED.ALL NEEDS ARE MET. WILL ENDORSE TO INCOMING NURSE FOR CONTINUITY OF CARE.
--- NOTE | 2019-11-30 06:55 | NUR ---
PT CONFUSED. TRYING TO GET OUT OF BET. PT ANXIOUS. PT UNCOOPERATIVE AND COMBATIVE TO STAFF. THROWING THE BED STEVENSON. PT TAKING OFF HER HEART MONITOR. PT IN NO ACUTE DISTRESS.
--- NOTE | 2019-11-30 08:00 | NUR ---
RECEIVED PATIENT IN ROOM STANDING BY HER BEDSIDE SEEMED CONFUSED STATED THAT SHE HAS NOT SPOKEN TO HER SO SHE WAS ABLE TO DIAL HER ON HER PHONE AND I DID SPEAK WITH HIM AND PATIENT REASSURED THAT SHE IS OKAY AND THAT SHE IS AT [facility] BEING PREPPED FOR SURGERY RELATED TO HER RECENT FALL AND SUBSEQUENT FRACTURE OF HER RIGHT HIP ASSISTED INTO BED MADE COMFORTABLE WILL CONTINUE TO OBSERVE.
[2019-11-30] MEDS: PANTOPRAZOLE SODIUM 40 MG TABLET.DR PO SCH (08:26)
--- NOTE | 2019-11-30 08:26 | NUR ---
WAS UNABLE TO SCAN THE BAR CODE ON THE PROTONIX ATTEMPTED 3 TIMES AND IT STATED UNKNOWN BAR CODE SO I CALLED THE PHARMACIST SPOKE WITH SAUNDRA AND SHE STATED TO MANUALLY ENTER THE PROTONIX.
--- NOTE | 2019-11-30 09:34 | NUR ---
CALL RECEIVED FROM DR BECK WITH ORDERS STATED THAT PATIENT IS SCHEDULED FOR SURGERY TOMORROW AT 0800 AND SHOULD BE NPO AFTER MIDNITE TODAY AND TO TYPE AND CROSS MATCH 2 UNITS PRBC AND NOTED
[2019-11-30] MEDS: CEFTRIAXONE 1 G in IV DEXTROSE 5% 50 ML IV SCH (11:19)
[2019-11-30 11:48] VITALS: BP 169/92
--- NOTE | 2019-11-30 13:00 | NUR ---
PATIENT IS ALERT BUT IS VERY FORGETFUL AND MIXED UP DOES NOT SEEM TO KNOW WHERE SHE IS BUT IS EASILY REORIENTED SO PATIENTS CALLED FOR CONSENTS FOR BLOOD TRANSFUSSION AND ORTH SURGERY SCHEDULED FOR TOMORROW EVEN THOUGH PATIENT HAS PREVIOUSLY SIGNED THE CONSCENT YESTERDAY.REMAIN ON ATB ORDERED WITH NO ADVERSE OR ALLERGIC REACTIONS AT THIS TIME WILL CONTINUE TO OBSERVE.
[2019-11-30 16:09] VITALS: BP 117/61
--- NOTE | 2019-11-30 18:00 | NUR ---
PATIENT INSTRUCTED ON PENDING SURGERY TOMORROW PRE OP TEACHING INCLUDING BEING NPO AFTER MIDNIGHT AND SHE EXPRESSED UNDERSTANDING WILL CONTINUE TO OBSERVE AND PROVIDE COMFORT.
[2019-11-30 20:00] VITALS: BP 134/72
--- NOTE | 2019-11-30 20:00 | NUR ---
RECD PT IN BED,,NO ACUTE DISTRESS NOTED, ON TELE SR/ST,W/BB,92-106, IN AN OUT OF CONFUSION, NEEDS ATTENDED TO.WATCHING TV ,RESTING FAIRLY WELL.
[2019-11-30] MEDS: CITALOPRAM 20 MG TABLET PO SCH (20:09)
[2019-11-30] MEDS: NIFEdipine XL 30 MG TABSR PO SCH (20:09)
--- NOTE | 2019-11-30 21:50 | NUR ---
REINSTRUCTED REGARDING PREPARATION FOR SURGERY IN AM, ,FALL PRECAUTIONS OBSERVED AND IMPLEMENTED.
[2019-12-01] VITALS (7 sets, daily range): BP systolic 102–125; BP diastolic 60–68
--- NOTE | 2019-12-01 02:26 | NUR ---
HAD A BIG BM,CLEANED AND KEPT DRY, NEEDS ATTENDED TO.SLEPTAT SHORT INTERVALS
--- NOTE | 2019-12-01 02:38 | NUR ---
NPO OBSERVED AND MAINTAINED,NEEDS ATTENDED TO.KEPT WARM AND COMFORTABLE.
--- NOTE | 2019-12-01 06:29 | NUR ---
HAD A QUIET NITE, AM CARE RENDERED, PRE OP CHECKLIST STARTED.
[2019-12-01] MEDS: PANTOPRAZOLE SODIUM 40 MG TABLET.DR PO SCH (07:00)
--- NOTE | 2019-12-01 07:45 | NUR ---
RECEIVED PATIENT AWAKE, ALERT AND ORIENTED X 4. ON RA, SATURATION WNL. NO S/S OF SOB OR DISTRESS. IV ON R FA 18G, FLUSHING AND PATENT. SR ON MONITOR. NO COMPLAINTS OF PAIN AT THIS TIME. OR STAFF TRANSPORTED PATIENT FOR SCHEDULED PROCEDURE AT 0740.
[2019-12-01] MEDS ORDERED: ROCURONIUM BROMIDE 50 MG/5 ML VIAL ONE ×2 (08:12→10:31)
[2019-12-01] MEDS ORDERED: HYDROMORPHONE 2 MG/1 ML DISP.SYRIN ONE (08:12)
[2019-12-01] MEDS ORDERED: CLINDAMYCIN PHOSPHATE 600 MG/4 ML VIAL ONE (08:13)
[2019-12-01] MEDS ORDERED: VANCOMYCIN 1000 MG VIAL ONE (11:43)
[2019-12-01] MEDS ORDERED: GLYCOPYRROLATE 0.2 MG/ML VIAL IJ ONE (12:28)
[2019-12-01] MEDS ORDERED: ETOMIDATE 20 MG/10 ML VIAL IV ONE (12:28)
[2019-12-01] MEDS ORDERED: KETOROLAC TROMETHAMINE 30 MG INJ IM ONE (12:28)
[2019-12-01] MEDS ORDERED: SEVOFLURANE 250 ML BOTTLE IH ONE (12:28)
[2019-12-01] MEDS ORDERED: IV NORMAL SALINE 1000 ML BAG IV ONE ×2 (12:28)
[2019-12-01] MEDS ORDERED: DEXAMETHASONE SOD PHOSPHATE 4 MG INJ IV ONE (12:28)
[2019-12-01] MEDS ORDERED: NEOSTIGMINE METHYLSULFATE 10 MG/10 ML VIAL IM ONE (12:28)
[2019-12-01] MEDS ORDERED: ONDANSETRON 4 MG/2 ML VIAL IV ONE (12:28)
[2019-12-01] MEDS ORDERED: PROPOFOL 200 MG/20 ML BOTTLE IV ONE (12:28)
[2019-12-01] MEDS ORDERED: IV D5W-0.45% NS +20 KCL 1,000 ML IV ONE (12:54)
[2019-12-01] MEDS ORDERED: ONDANSETRON 4 MG/2 ML VIAL ONE (12:59)
[2019-12-01] MEDS ORDERED: HYDROMORPHONE 1 MG/1 ML DISP.SYRIN ONE (12:59)
[2019-12-01] MEDS ORDERED: MORPHINE SULFATE 4 MG/1 ML DISP.SYRIN IV PRN (13:30)
--- NOTE | 2019-12-01 15:00 | NUR ---
RECEIVED PATIENT FROM RECOVERY. PATIENT IS DROWSY BUT AROUSABLE BY NAME AND TOUCH. ON 2L NC, SATURATION WNL. SINUS TACHYCARDIC, ASYMPTOMATIC. VS WNL. ABDUCTOR PILLOW IN PLACE. DRESSING INTACT. NO S/S OF BLEEDING NOTED. NO COMPLAINTS OF PAIN AT THIS TIME. WILL CONTINUE TO MONITOR. Addendum: 12/01/19 at 1839 by ANNA PARSONS RN HEMOVAC INTACT AND IN SUCTION POSITION.
[2019-12-01] MEDS: CEFTRIAXONE 1 G in IV DEXTROSE 5% 50 ML IV SCH (16:15)
[2019-12-01] MEDS: POTASSIUM CHLORIDE 20 MEQ in IV D5 1/2 NS 1000 ML 1,000 ML IV PRN (17:14)
--- NOTE | 2019-12-01 17:36 | NUR ---
CALLED LAB TO FOLLOW UP ON WOUND CULTURE SWAB. SPOKE WITH MAYELIN, CONFIRMED THAT CULTURE SAMPLE WAS RECEIVED.
--- NOTE | 2019-12-01 18:22 | NUR ---
PATIENT SINUS TACHYCARDIC AT 105 HR, ASYMPTOMATIC. AWAKE, ALERT, AND ORIENTED X 4. ABDUCTOR PILLOW IN PLACE. REINFORCED HIP PRECAUTIONS. EDUCATED PATIENT ON PROPER USE OF IS. ENCOURAGED USE OF INCENTIVE SPIROMETER AT BEDSIDE 10X Q1HR WHILE AWAKE. NO S/S OF DISTRESS OR SOB. DRESSING INTACT. ICE PACK IN PLACE ON RIGHT HIP. NO NAUSEA/VOMITING. DENIES N/V.
[2019-12-01] MEDS: HYDROCODONE/APAP 10-325 MG TABLET PO PRN (19:39)
[2019-12-01] MEDS: NIFEdipine XL 30 MG TABSR PO SCH (20:14)
[2019-12-01] MEDS: CITALOPRAM 20 MG TABLET PO SCH (20:14)
[2019-12-02 00:22] VITALS: BP 122/64
[2019-12-02] MEDS: HYDROCODONE/APAP 10-325 MG TABLET PO PRN ×3 (00:42→20:35)
[2019-12-02 04:00] VITALS: BP 124/77
[2019-12-02] MEDS: POTASSIUM CHLORIDE 20 MEQ in IV D5 1/2 NS 1000 ML 1,000 ML IV PRN ×2 (04:52→16:44)
--- NOTE | 2019-12-02 05:02 | NUR ---
pt rested well in between care; c/o pain x2 to incision site; both given with Hanna as ordered with good result; incision dressing c/d/i and ice applied; incentive spirometer instructed to use more often; Pt's wants to speak with DR Ram with plan of care; continue to monitor; continue plan of care.
--- NOTE | 2019-12-02 05:40 | NUR ---
hemovac drain total of 250 ml overnight.
[2019-12-02 05:58] LABS: BASOPHILS # (AUTO) 0.1 K/uL (0.0-8.0); BASOPHILS % (AUTO) 0.5 % (0.0-2.0); EOSINOPHILS % (AUTO) 0.2 % (0.0-7.0); HEMATOCRIT 30.2 % (31.2-41.9); HEMOGLOBIN 10.2 g/dL (10.9-14.3); LYMPHOCYTES # (AUTO) 1.6 K/uL (20.0-40.0); LYMPHOCYTES % (AUTO) 11.5 % (20.5-51.5); MEAN CORPUSCULAR HEMOGLOBIN 30.3 uug (24.7-32.8); MEAN CORPUSCULAR HGB CONC 34 g/dL (32.3-35.6); MEAN CORPUSCULAR VOLUME 90.1 fL (75.5-95.3); MONOCYTES # (AUTO) 1.4 K/uL (2.0-10.0); NEUTROPHILS % (AUTO) 77.8 % (38.5-71.5); PLATELET COUNT (AUTO) 220 K/uL (179-408); RED BLOOD CELL COUNT(AUTO) 3.36 MIL/uL (3.63-4.92); WHITE BLOOD COUNT (AUTO) 14.1 K/uL (3.8-11.8)
[2019-12-02] MEDS: PANTOPRAZOLE SODIUM 40 MG TABLET.DR PO SCH (06:10)
[2019-12-02 06:19] LABS: CREATININE 1.3 mg/dL (0.6-1.3); MAGNESIUM 1.9 mg/dL (1.8-2.4); PHOSPHOROUS 3.6 mg/dL (2.5-4.9); POTASSIUM 4.7 mmol/L (3.5-5.1)
--- NOTE | 2019-12-02 08:00 | NUR ---
AWAKE ALERT AND PLEASANT, ABLE TO VERBALIZE NEEDS, COOPERATIVE WITH CARE. RIGHT HIP INCISION WITH DRESSING INTACT, NO SIGNS OF BLEEDING. ABDUCTION PILLOW MAINTAINED, GOOD PEDAL PULSES AND ABLE TO WIGGLE TOES FREELY. PAIN MEDS OFFERED BUT REFUSED. OBSERVED. SR ON MONITOR.
[2019-12-02 09:08] VITALS: BP 143/59
[2019-12-02 11:54] VITALS: BP 98/79
[2019-12-02] MEDS: MORPHINE SULFATE 2 MG/1 ML DISP.SYRIN IV PRN ×2 (12:06→16:40)
[2019-12-02] MEDS: CEFTRIAXONE 1 G in IV DEXTROSE 5% 50 ML IV SCH (12:22)
--- NOTE | 2019-12-02 12:30 | NUR ---
SEEN AND EVAL BY PHYSICAL THERAPIST SEE NOTES. RE: PATIENT REQUIRES PAIN MEDICATION PRIOR TO THERAPY FOR BETTER PARTICIPATION AND TOLERANCE
--- NOTE | 2019-12-02 14:00 | NUR ---
SEEN BY DR JOY AND TRUONG SEE NOTES.
[2019-12-02 15:47] VITALS: BP 141/61
[2019-12-02] MEDS: IV NS 1000 ML 1,000 ML IV PRN (17:57)
--- NOTE | 2019-12-02 18:52 | NUR ---
CONTINUE WITH PHYSICAL THERAPY 50% NWB, CONTINUE WITH PAIN MANAGEMENT. AFEBRILE
[2019-12-02 20:18] VITALS: BP 135/68
[2019-12-02] MEDS: CITALOPRAM 20 MG TABLET PO SCH (20:35)
[2019-12-02] MEDS: NIFEdipine XL 30 MG TABSR PO SCH (20:35)
[2019-12-03 00:06] VITALS: BP 137/68
[2019-12-03] MEDS: ZOLPIDEM 5 MG TABLET PO PRN (00:13)
[2019-12-03] MEDS: HYDROCODONE/APAP 10-325 MG TABLET PO PRN ×2 (02:00→23:12)
[2019-12-03 04:06] VITALS: BP_SYST 137; BP_SYST 143; BP_DIAS 69; BP_DIAS 72
[2019-12-03 06:23] LABS: BASOPHILS % (AUTO) 0.3 % (0.0-2.0); EOSINOPHILS # (AUTO) 0.1 K/uL (0.0-0.7); HEMATOCRIT 23.8 % (31.2-41.9); HEMOGLOBIN 8.5 g/dL (10.9-14.3); LYMPHOCYTES # (AUTO) 0.7 K/uL (20.0-40.0); LYMPHOCYTES % (AUTO) 7.2 % (20.5-51.5); MEAN CORPUSCULAR HEMOGLOBIN 31.8 uug (24.7-32.8); MEAN CORPUSCULAR HGB CONC 36 g/dL (32.3-35.6); MEAN CORPUSCULAR VOLUME 89.2 fL (75.5-95.3); MONOCYTES % (AUTO) 9.6 % (0.0-11.0); NEUTROPHILS # (AUTO) 8.6 K/uL (1.8-8.9); NEUTROPHILS % (AUTO) 81.9 % (38.5-71.5); PLATELET COUNT (AUTO) 166 K/uL (179-408); RED BLOOD CELL COUNT(AUTO) 2.67 MIL/uL (3.63-4.92); WHITE BLOOD COUNT (AUTO) 10.5 K/uL (3.8-11.8)
--- NOTE | 2019-12-03 06:35 | NUR ---
pT FAIRLY RESTED; C/O PAIN AND MEDICATED ACCORDINGLY; PERIODS OF CONFUSION; REASSURANCE AND REDIRECTION DONE; SAFETY MAINTAINED; NEEDS ATTENDED; CONTINUE TO MONITOR; CONTINUE PLAN OF CARE; WILL ENDORSE FOR SIFUENTES TO BE REMOVED PER SCIP
[2019-12-03] MEDS: PANTOPRAZOLE SODIUM 40 MG TABLET.DR PO SCH (06:41)
[2019-12-03 06:49] LABS: CREATININE 0.9 mg/dL (0.6-1.3); MAGNESIUM 2.3 mg/dL (1.8-2.4); PHOSPHOROUS 2.8 mg/dL (2.5-4.9)
[2019-12-03] MEDS: MORPHINE SULFATE 2 MG/1 ML DISP.SYRIN IV PRN ×3 (08:45→20:21)
--- NOTE | 2019-12-03 09:44 | NUR ---
pt in bed, awake and confused. no signs of distress, no SOB, abduction pillow in correct position, woundvac is draining with blood. mendez catheter draining yellow urine. call light within reach, kept comfortable in bed. will continue to monitor.
--- NOTE | 2019-12-03 10:25 | NUR ---
called Dr. Ram's Office spoke with Maria Isabel Re: hgb 8.4, wound vac draining blood. awaiting for call back.
[2019-12-03] MEDS: CEFTRIAXONE 1 G in IV DEXTROSE 5% 50 ML IV SCH (11:17)
[2019-12-03 11:45] VITALS: BP 130/62
[2019-12-03] MEDS: IV NS 1000 ML 1,000 ML IV PRN (11:52)
[2019-12-03] MEDS: ACETAMINOPHEN 325 MG TABLET PO PRN (15:19)
--- NOTE | 2019-12-03 15:54 | NUR ---
Patient noted with Vtach, for 6 seconds, Dr. fajardo made aware with New Order of labs: potassium, magnesium and CBC STAT.
[2019-12-03 16:00] VITALS: BP 152/73
[2019-12-03 16:43] LABS: BASOPHILS % (AUTO) 0.1 % (0.0-2.0); EOSINOPHILS % (AUTO) 0.4 % (0.0-7.0); HEMATOCRIT 23.8 % (31.2-41.9); HEMOGLOBIN 8.1 g/dL (10.9-14.3); LYMPHOCYTES # (AUTO) 0.6 K/uL (20.0-40.0); LYMPHOCYTES % (AUTO) 5.1 % (20.5-51.5); MEAN CORPUSCULAR HEMOGLOBIN 30.3 uug (24.7-32.8); MEAN CORPUSCULAR HGB CONC 34 g/dL (32.3-35.6); MEAN CORPUSCULAR VOLUME 89.5 fL (75.5-95.3); MONOCYTES # (AUTO) 0.9 K/uL (2.0-10.0); MONOCYTES % (AUTO) 7.8 % (0.0-11.0); NEUTROPHILS # (AUTO) 9.7 K/uL (1.8-8.9); NEUTROPHILS % (AUTO) 86.6 % (38.5-71.5); PLATELET COUNT (AUTO) 181 K/uL (179-408); RED BLOOD CELL COUNT(AUTO) 2.66 MIL/uL (3.63-4.92); WHITE BLOOD COUNT (AUTO) 11.3 K/uL (3.8-11.8)
--- NOTE | 2019-12-03 16:51 | NUR ---
Dr. Montoya made aware of lab results, K 4.0 Mg 2.0 and hgb 8.1.
--- NOTE | 2019-12-03 16:57 | NUR ---
Dr. Montoya with New Order of Metoprolol 25mg BID Hold SBP <105, HR <60.
[2019-12-03] MEDS: METOPROLOL TARTRATE 25 MG TABLET PO SCH (17:17)
--- NOTE | 2019-12-03 18:32 | NUR ---
Pt awake and stable. No signs of distress or pain. Pain has improved according to patients report. Two doses of Morphine 2 MG x 2 given for right hip pain with help. Hemovac draining blood with output of 75 mL. Dominguez catheter is draining clear/yellow urine. Abduction pillow in place. Kept comfortable, call light in reach. Will endorse the electroplating technician nurse.
[2019-12-03 20:09] VITALS: BP 117/63
[2019-12-03] MEDS: CITALOPRAM 20 MG TABLET PO SCH (20:18)
[2019-12-03] MEDS: NIFEdipine XL 30 MG TABSR PO SCH (20:18)
--- NOTE | 2019-12-03 20:30 | NUR ---
RECEIVED PATIENT AWAKE IN BED. A/O X3 BUT VERY FORGETFUL AND NEEDS REDIRECTION. C/O PAIN IN RIGHT HIP. PATIENT GIVEN MORPHINE 2MG IVP PER MANAGER CLINICAL SERVICES. VS WNL. ON TELE SR. IVF INFUSING WELL TO LEFT FA #22 GAUGE. ABDUCTION PILLOW IN PLACE. DRESSING C/D/I. HEMOVAC INTACT. BED ALARM ON. CALL LIGHT IN REACH. WILL CONTINUE TO MONITOR AND ASSESS.
--- NOTE | 2019-12-03 23:10 | NUR ---
PATIENT AWAKE IN BED, VERY CONFUSED AND TRYING TO GET OOB, STATING THAT SHE IS "GOING HOME." PATIENT PULLED OUT HEMOVAC NOTED TO RIGHT HIP. 50cc'S NOTED IN HEMOVAC. NO BLEEDING OR DRAINAGE NOTED. DRESSING REINFORCED. WILL CONTINUE TO MONITOR AND ASSESS.
[2019-12-04] MEDS: IV NS 1000 ML 1,000 ML IV PRN ×2 (02:43→19:28)
[2019-12-04 04:09] VITALS: BP 134/66
[2019-12-04] MEDS: ACETAMINOPHEN 325 MG TABLET PO PRN ×2 (05:08→09:23)
[2019-12-04 06:15] LABS: BASOPHILS % (AUTO) 0.4 % (0.0-2.0); EOSINOPHILS # (AUTO) 0.2 K/uL (0.0-0.7); EOSINOPHILS % (AUTO) 2.2 % (0.0-7.0); HEMATOCRIT 22.5 % (31.2-41.9); HEMOGLOBIN 7.7 g/dL (10.9-14.3); LYMPHOCYTES # (AUTO) 0.7 K/uL (20.0-40.0); LYMPHOCYTES % (AUTO) 8.4 % (20.5-51.5); MEAN CORPUSCULAR HEMOGLOBIN 30.9 uug (24.7-32.8); MEAN CORPUSCULAR HGB CONC 34 g/dL (32.3-35.6); MEAN CORPUSCULAR VOLUME 90.1 fL (75.5-95.3); MONOCYTES # (AUTO) 0.8 K/uL (2.0-10.0); MONOCYTES % (AUTO) 9.4 % (0.0-11.0); NEUTROPHILS % (AUTO) 79.6 % (38.5-71.5); PLATELET COUNT (AUTO) 170 K/uL (179-408); WHITE BLOOD COUNT (AUTO) 8.8 K/uL (3.8-11.8)
[2019-12-04] MEDS: PANTOPRAZOLE SODIUM 40 MG TABLET.DR PO SCH (06:27)
[2019-12-04 06:44] LABS: CREATININE 0.7 mg/dL (0.6-1.3); PHOSPHOROUS 2.6 mg/dL (2.5-4.9); POTASSIUM 3.4 mmol/L (3.5-5.1)
--- NOTE | 2019-12-04 06:53 | NUR ---
PATIENT AWAKE IN BED. ON TELE SR. PATIENT IS VERY CONFUSED AND DISORIENTED BUT PLEASANT WHEN APPROACHED AND NEEDS REDIRECTION. NEW IV HEPLOCK STARTED TO LEFT AC #[address] BECK THAT PATIENT PULLED OUT HEMOVAC, NO NEW ORDERS. BED ALARM ON. CALL LIGHT IN REACH. ALL NEEDS ATTENDED. WILL CONTINUE TO MONITOR.
[2019-12-04] MEDS ORDERED: POTASSIUM CHLORIDE 20 MEQ POWDER PACKET GT ONE (07:00)
--- NOTE | 2019-12-04 08:00 | NUR ---
Awake, alert, oriented x3 but seeing bug on the blanket. Right hip dressing clean and dry, abduction pillow in place. RLE with good pulse, sensation. Dominguez catheter to drainage bag
[2019-12-04 08:39] VITALS: BP 133/67
[2019-12-04] MEDS: POTASSIUM CHLORIDE 50 ML IV SCH ×2 (09:22→11:21)
[2019-12-04] MEDS: METOPROLOL TARTRATE 25 MG TABLET PO SCH ×2 (09:23→17:37)
--- NOTE | 2019-12-04 12:00 | NUR ---
With BM while sitting on the chair. Assisted back to bed with 2 person assist. Abduction pillow placed. Bed alarm on
[2019-12-04] MEDS: CEFTRIAXONE 1 G in IV DEXTROSE 5% 50 ML IV SCH (12:43)
--- NOTE | 2019-12-04 14:00 | NUR ---
PT at bedside, able participate more
[2019-12-04 15:03] VITALS: BP 136/72
--- NOTE | 2019-12-04 18:46 | NUR ---
Repositioned comfortably in bed. Kept dry and comfortable.
--- NOTE | 2019-12-04 19:31 | NUR ---
Consent still to be signed. Addendum: 12/04/19 at 1932 by KANA ARCINIEGA RN NOT THIS PATIENT
[2019-12-04] MEDS: MORPHINE SULFATE 2 MG/1 ML DISP.SYRIN IV PRN (19:55)
[2019-12-04 20:00] VITALS: BP 130/64
[2019-12-04] MEDS: CITALOPRAM 20 MG TABLET PO SCH (20:39)
[2019-12-04] MEDS: ZOLPIDEM 5 MG TABLET PO PRN (21:00)
[2019-12-05] VITALS: BP 115/61
--- NOTE | 2019-12-05 00:15 | NUR ---
RELIEF AFFORDED, NO FURTHER COMPLAINTS PRESENTED.NO FACIAL GRIMACE NOTED.PT QUIETLY RESTING IN BED.
[2019-12-05 04:00] VITALS: BP 120/86
[2019-12-05] MEDS: HYDROCODONE/APAP 10-325 MG TABLET PO PRN ×2 (06:05→17:58)
[2019-12-05] MEDS: PANTOPRAZOLE SODIUM 40 MG TABLET.DR PO SCH (06:06)
--- NOTE | 2019-12-05 07:01 | NUR ---
ADD;AT 2347 ON 12/04/19 MORPHINE 2 MG GIVEN IV ORDERED TO PT, COMPLAINTS OF RT HIP PAIN 12/11.PT. TOLERATED IT WELL ,RESTED FAIRLY WELL.
--- NOTE | 2019-12-05 08:00 | NUR ---
In bed, awake and alert. Some periods of confusion. Needs attended at all times for safety. SR on monitor.
[2019-12-05] MEDS ORDERED: METOPROLOL TARTRATE 25 MG TABLET PO SCH (09:00)
[2019-12-05 09:59] LABS: BASOPHILS % (AUTO) 0.3 % (0.0-2.0); CREATININE 0.8 mg/dL (0.6-1.3); EOSINOPHILS # (AUTO) 0.1 K/uL (0.0-0.7); EOSINOPHILS % (AUTO) 1.3 % (0.0-7.0); HEMATOCRIT 23.1 % (31.2-41.9); HEMOGLOBIN 7.9 g/dL (10.9-14.3); LYMPHOCYTES # (AUTO) 0.8 K/uL (20.0-40.0); LYMPHOCYTES % (AUTO) 8.5 % (20.5-51.5); MAGNESIUM 1.9 mg/dL (1.8-2.4); MEAN CORPUSCULAR HEMOGLOBIN 30.4 uug (24.7-32.8); MEAN CORPUSCULAR HGB CONC 34 g/dL (32.3-35.6); MEAN CORPUSCULAR VOLUME 88.9 fL (75.5-95.3); MONOCYTES # (AUTO) 0.7 K/uL (2.0-10.0); MONOCYTES % (AUTO) 7.2 % (0.0-11.0); NEUTROPHILS # (AUTO) 8.1 K/uL (1.8-8.9); NEUTROPHILS % (AUTO) 82.7 % (38.5-71.5); PHOSPHOROUS 3.4 mg/dL (2.5-4.9); PLATELET COUNT (AUTO) 259 K/uL (179-408); POTASSIUM 3.1 mmol/L (3.5-5.1); WHITE BLOOD COUNT (AUTO) 9.9 K/uL (3.8-11.8)
--- NOTE | 2019-12-05 10:00 | NUR ---
Compete bed bath given. Noted R hip incision clean and dry with fartun well approximated. No s/s of infection or bleeding. Mild post op bruising noted. Also seen by PT for exercises. See PT notes. Continue 50% weight bearing as ordered.
[2019-12-05] MEDS: CEFTRIAXONE 1 G in IV DEXTROSE 5% 50 ML IV SCH (10:46)
[2019-12-05] MEDS: MORPHINE SULFATE 2 MG/1 ML DISP.SYRIN IV PRN (11:40)
[2019-12-05 12:24] VITALS: BP 112/62
--- NOTE | 2019-12-05 13:30 | NUR ---
Pt was given morphine 2mg for pain 10/10 prior to PT and with good relief from pain.
[2019-12-05] MEDS ORDERED: HYDR-3980 PO (13:54)
[2019-12-05] MEDS ORDERED: METO25TA6 PO (13:54)
[2019-12-05] MEDS ORDERED: POTASSIUM CHLORIDE 20 MEQ TAB.PRT.SR PO ONE (14:00)
[2019-12-05 15:23] VITALS: BP 122/67
--- NOTE | 2019-12-05 18:08 | NUR ---
dc orders received noted and carried out.dc instruction and rn report given to the night nurse .pt dc via bed to rehab in stable condition
[2019-12-06] MEDS ORDERED: FERROUS SULFATE 325 MG TABEC PO SCH (09:00)
== END 2019-12-05 18:00 | DRG 467 ==
LOC: ER 08:57 → MEDSURG3 13:20 → TELE3 14:50
PROVIDERS: ADMIT Internal Medicine; ATTEND Student in an Organized Health Care Education/Training Program
PROC: 0SR90JZ Replacement of Right Hip Joint with Synthetic Substitute, Open Approach (ICD-10-PCS; principal; 2019-12-01)
PROC: 0SP90JZ Removal of Synthetic Substitute from Right Hip Joint, Open Approach (ICD-10-PCS; 2019-12-01)
PROC: 30233N1 Transfusion of Nonautologous Red Blood Cells into Peripheral Vein, Percutaneous Approach (ICD-10-PCS; 2019-12-01)
DX: M97.01XA Periprosthetic fracture around internal prosthetic right hip joint, initial encounter (principal); N39.0 Urinary tract infection, site not specified; E87.1 Hypo-osmolality and hyponatremia; D62 Acute posthemorrhagic anemia; W18.2XXA Fall in (into) shower or empty bathtub, initial encounter; Y93.E1 Activity, personal bathing and showering; Y92.002 Bathroom of unspecified non-institutional (private) residence as the place of occurrence of the external cause; G89.4 Chronic pain syndrome; M06.9 Rheumatoid arthritis, unspecified; T84.030A Mechanical loosening of internal right hip prosthetic joint, initial encounter; F32.9 Major depressive disorder, single episode, unspecified; F41.9 Anxiety disorder, unspecified; I50.9 Heart failure, unspecified; Z91.81 History of falling; E03.9 Hypothyroidism, unspecified; I11.0 Hypertensive heart disease with heart failure; Z98.1 Arthrodesis status; Z79.891 Long term (current) use of opiate analgesic; M19.90 Unspecified osteoarthritis, unspecified site; G31.84 Mild cognitive impairment of uncertain or unknown etiology; I44.7 Left bundle-branch block, unspecified; Z96.642 Presence of left artificial hip joint; N32.81 Overactive bladder; R29.6 Repeated falls
CPT/HCPCS: 36415; 70030-TC; 70450; 71250; 72125; 72192; 73501; 73502; 73503; 73551; 83735; 84100; 84132; 84443; 85025; 85730; 86850; 86900; 86901; 86920; 87077; 87086; 93005; 93307; A4649; A4663; C1776; C9113; G0378; J0696; J1100; J1170; J1885; J2270; J2405; J2710; J3370; J3480; J3490; J7030; J7050; J7060; P9016-BL; P9021

== ENCOUNTER 2019-12-05 18:27 | Inpatient (IN) | payer MEDICARE, OTHER ==
[~2019-12-05] VITALS: Ht 170.2 cm; Wt 66.4 kg
[~2019-12-05 18:27] MED LIST changes: +HYDR-3980 PO; -LEVO500T2 PO; +METO25TA6 PO; +OXYC-133 PO
[2019-12-05 19:05] VITALS: BP 128/67
[2019-12-05 21:46] VITALS: BP 138/60
--- NOTE | 2019-12-05 21:59 | NUR ---
Called [facility] & spoke with for medication reconciliation.
[2019-12-05] MEDS ORDERED: ZOLPIDEM 5 MG TABLET PO PRN (22:15)
[2019-12-05] MEDS ORDERED: DIAZEPAM 5 MG TABLET PO PRN (22:15)
[2019-12-06] MEDS ORDERED: ALBUTEROL SULFATE 2.5 MG/3 ML NEBU NEB PRN (00:30)
[2019-12-06] MEDS: HYDROCODONE/APAP 10-325 MG TABLET PO PRN ×4 (00:43→20:38)
[2019-12-06 04:42] VITALS: BP 134/71
[2019-12-06 08:00] VITALS: BP 143/69
[2019-12-06] MEDS ORDERED: MEPROBAMATE 400 MG PO SCH (09:00)
[2019-12-06] MEDS: ACIDOPHILUS/BULGARICUS CHEW TAB PO SCH ×2 (09:08→17:58)
[2019-12-06] MEDS: METOPROLOL TARTRATE 25 MG TABLET PO SCH ×2 (09:08→20:26)
--- NOTE | 2019-12-06 11:00 | NUR ---
Received patient in room, Pt. is AAO x 2, Pt. noted being forgetful and needs reorientation. Vital signs stable for patient. Due medications administered as ordered an scheduled. Bud 10/325mg 1 tab for pain before PT/OT administered and effective. Surgical site on right hip covered with dressing intact and dry at this time. Skin kept clean and dry. F/C intact and patent and draining well. Pt. on PT/OT therapy as outlined. Needs attended, safety measures in place and will continue with care.
[2019-12-06 16:21] VITALS: BP 124/58
--- NOTE | 2019-12-06 19:30 | NUR ---
Patient in bed at this time, resting comfortably. Patient still noted with forgetfulness; reorientation needed. Vital signs stable for patient. Dressing on right hip noted with serosanguineous discharge, dressing changed incision site intact and dry. Skin kept clean and dry. Abduction pillow in place. Patient with SCD pumps in place. Needs attended, safety measures in place, call light left at bed side, Endorsed to next shift and will continue with care.
[2019-12-06] MEDS: OMEGA-3 FATTY ACIDS/FISH OIL CAPSULE PO SCH (20:23)
[2019-12-06] MEDS: ASCORBIC ACID 500 MG TABLET PO SCH (20:24)
[2019-12-06] MEDS: CALCIUM CARBONATE 600 MG TABLET PO SCH (20:25)
[2019-12-06] MEDS: CYANOCOBALAMIN 1,000 MCG TABLET PO SCH (20:25)
[2019-12-06] MEDS: CITALOPRAM 20 MG TABLET PO SCH (20:25)
[2019-12-06] MEDS: AMITRIPTYLINE HCL 50 MG TABLET PO SCH (20:25)
[2019-12-06] MEDS: ATORVASTATIN 10 MG TABLET PO SCH (20:27)
[2019-12-06 20:33] VITALS: BP 135/57
[2019-12-06] MEDS: INDOMETHACIN 25 MG CAPSULE PO SCH (20:39)
[2019-12-07 05:09] VITALS: BP 115/94
[2019-12-07 07:41] VITALS: BP 112/50
[2019-12-07] MEDS: ACIDOPHILUS/BULGARICUS CHEW TAB PO SCH ×2 (09:19→17:52)
[2019-12-07] MEDS: METOPROLOL TARTRATE 25 MG TABLET PO SCH ×2 (09:20→20:40)
--- NOTE | 2019-12-07 12:00 | NUR ---
Patient is alert, oriented x 2, not in any form of distress, on room air. No complain of any pain or discomfort at this time. Patient sitting on the wheelchair for lunch. Needs attended to promptly. Patient participated with PT. She is compliant with medications. Call light and frequently used items placed within patient's reach. Safety measures maintained. Dressing change done on right hip surgical incision site noted with serousanguinous drainage. No noted signs of infection. Will continue to monitor.
--- NOTE | 2019-12-07 13:20 | NUR ---
Family Contact: SW called the pts , Seamus ([phone]), and discussed the pts treatment and the services that she would need. SW stated that she provided patient with the following caregiving resources: [facility]; ([phone]), [facility]; ([phone]), [facility]; ([phone]). Pts stated that was needed because he will not be able to take care of her once she is discharged back home.
--- NOTE | 2019-12-07 13:30 | NUR ---
Social Service Note: SW provided patient with the following caregiving resources: [facility]; ([phone]), [facility]; ([phone]), [facility]; ([phone]). appliance worker will continue to remain available to patient and provide ongoing supportive counseling and assess for any psychosocial needs. appliance worker will encourage patient to comply with ARU goals of care.
[2019-12-07] MEDS: HYDROCODONE/APAP 10-325 MG TABLET PO PRN ×2 (14:50→20:54)
[2019-12-07 15:12] VITALS: BP 119/72
[2019-12-07 20:00] VITALS: BP 115/58
[2019-12-07] MEDS: CYANOCOBALAMIN 1,000 MCG TABLET PO SCH (20:38)
[2019-12-07] MEDS: AMITRIPTYLINE HCL 50 MG TABLET PO SCH (20:38)
[2019-12-07] MEDS: ATORVASTATIN 10 MG TABLET PO SCH (20:38)
[2019-12-07] MEDS: OMEGA-3 FATTY ACIDS/FISH OIL CAPSULE PO SCH (20:38)
[2019-12-07] MEDS: CITALOPRAM 20 MG TABLET PO SCH (20:38)
[2019-12-07] MEDS: CALCIUM CARBONATE 600 MG TABLET PO SCH (20:38)
[2019-12-07] MEDS: ASCORBIC ACID 500 MG TABLET PO SCH (20:38)
[2019-12-07] MEDS: INDOMETHACIN 25 MG CAPSULE PO SCH (20:43)
[2019-12-08 04:00] VITALS: BP 107/55
[2019-12-08 07:57] VITALS: BP 96/46
[2019-12-08] MEDS: ACIDOPHILUS/BULGARICUS CHEW TAB PO SCH ×2 (08:45→16:38)
[2019-12-08] MEDS: METOPROLOL TARTRATE 25 MG TABLET PO SCH ×2 (08:46→20:25)
[2019-12-08] MEDS: CLOTRIMAZOLE 1% CREAM 30 GM TUBE TOP SCH ×2 (08:49→21:17)
--- NOTE | 2019-12-08 12:44 | NUR ---
WOUND CARE CONSULT: PT PRESENTS WITH SURGICAL SITE WITH ORTHO DRESSING INTACT TO RT HIP AREA, RASH AND REDNESS TO BUTTOCKS, GROIN FOLDS AND PERINEUM WELL SKIN IRRITATION TO LEFT INNER THIGH, ALL PRESENT ON ADMISSION. RECOMMENDATIONS MADE FOR SKIN CARE AND PROTECTION. DISCUSSED WITH NURSING STAFF. PT HAS BEEN INCONTINENT OF STOOL PER NURSING STAFF. WILL SEE PRN. HENSON IN AGREEMENT WITH PLAN OF CARE. Addendum: 12/08/19 at 1246 by REGGIE SEAMAN RN Amended: Links added.
[2019-12-08] MEDS ORDERED: Z GUARD REMEDY PASTE 57 GM TUBE TOP PRN (12:45)
[2019-12-08 16:45] VITALS: BP 119/53
--- NOTE | 2019-12-08 17:01 | NUR ---
discontinued mendez catheter, order received from dr sanchez, continue to monitor for voiding, will endorse accordingly
--- NOTE | 2019-12-08 17:52 | NUR ---
kept clean and dry, cream applied as ordered, patient noted with multiple loose BMs, notified dr sanchez, continue to monitor, no other changes noted, participated with PT, OT services.
--- NOTE | 2019-12-08 18:59 | NUR ---
INDIVIDUALIZED PLAN OF CARE
[2019-12-08] MEDS: ASCORBIC ACID 500 MG TABLET PO SCH (20:24)
[2019-12-08] MEDS: OMEGA-3 FATTY ACIDS/FISH OIL CAPSULE PO SCH (20:24)
[2019-12-08] MEDS: CITALOPRAM 20 MG TABLET PO SCH (20:24)
[2019-12-08] MEDS: AMITRIPTYLINE HCL 50 MG TABLET PO SCH (20:24)
[2019-12-08] MEDS: CYANOCOBALAMIN 1,000 MCG TABLET PO SCH (20:24)
[2019-12-08] MEDS: CALCIUM CARBONATE 600 MG TABLET PO SCH (20:25)
[2019-12-08] MEDS: ATORVASTATIN 10 MG TABLET PO SCH (20:25)
[2019-12-08] MEDS: INDOMETHACIN 25 MG CAPSULE PO SCH (20:25)
[2019-12-08] MEDS: HYDROCODONE/APAP 10-325 MG TABLET PO PRN (20:33)
[2019-12-08 20:35] VITALS: BP 152/53
[2019-12-08] MEDS: Z GUARD REMEDY PASTE 57 GM TUBE TOP SCH (21:17)
--- NOTE | 2019-12-08 23:03 | NUR ---
Received pt resting in bed and reading a book. AAO x2. No acute distress noted. C/o right hip pain, PRN Alba and other due meds given as ordered. Skin care and wound care rendered. Turned and repositioned. Safety measures maintained. Call light and personal items within reach. Will continue to monitor.
--- NOTE | 2019-12-09 02:54 | NUR ---
Pt able to void freely after discontinuation of mendez catheter. Continue to monitor.
[2019-12-09 04:50] VITALS: BP 107/53
[2019-12-09 07:19] LABS: BILIRUBIN,TOTAL 0.3 mg/dL (0.2-1.0); MAGNESIUM 2.2 mg/dL (1.8-2.4); PHOSPHOROUS 4.8 mg/dL (2.5-4.9); POTASSIUM 4.9 mmol/L (3.5-5.1); TOTAL PROTEIN, SERUM 5.4 g/dL (6.4-8.2)
--- NOTE | 2019-12-09 07:30 | NUR ---
Received patient sleeping in bed. upon assessment patient is found to be awake alert and oriented times 2, she is forgetful and constant reorientation is needed. No acute distress noted at this time. Patient does not report any pain. Skin care and wound care rendered, patient was cleaned, dried, application of Z guard and Lotrimin then covered with foam mepilex. Turned and repositioned every two hours. Safety measures maintained. Call light and personal items within reach. Will continue to monitor.
[2019-12-09 08:05] LABS: BASOPHILS % (AUTO) 0.6 % (0.0-2.0); EOSINOPHILS # (AUTO) 0.4 K/uL (0.0-0.7); EOSINOPHILS % (AUTO) 4.9 % (0.0-7.0); HEMATOCRIT 21.3 % (31.2-41.9); LYMPHOCYTES # (AUTO) 1.1 K/uL (20.0-40.0); LYMPHOCYTES % (AUTO) 14.2 % (20.5-51.5); MEAN CORPUSCULAR HGB CONC 34 g/dL (32.3-35.6); MEAN CORPUSCULAR VOLUME 89.4 fL (75.5-95.3); MONOCYTES # (AUTO) 0.5 K/uL (2.0-10.0); NEUTROPHILS # (AUTO) 5.7 K/uL (1.8-8.9); NEUTROPHILS % (AUTO) 73.3 % (38.5-71.5); PLATELET COUNT (AUTO) 364 K/uL (179-408); WHITE BLOOD COUNT (AUTO) 7.7 K/uL (3.8-11.8)
[2019-12-09 08:18] LABS: RED BLOOD CELL COUNT(AUTO) 2.39 MIL/uL (3.63-4.92)
[2019-12-09 08:19] LABS: HEMOGLOBIN 7.1 g/dL (10.9-14.3)
[2019-12-09 08:21] VITALS: BP 106/56
--- NOTE | 2019-12-09 08:21 | NUR ---
Lab called to report that patient has a critical lab value for hemoglobin and hematocrit. Hgb is 7.1 and hct is 21.3. made away and Dr Orozco says he will review the labs. Order for blood occult and urine culture placed. Will continue to monitor.
[2019-12-09] MEDS: ACIDOPHILUS/BULGARICUS CHEW TAB PO SCH ×2 (09:03→17:16)
[2019-12-09] MEDS: METOPROLOL TARTRATE 25 MG TABLET PO SCH ×2 (09:04→21:55)
[2019-12-09] MEDS: CLOTRIMAZOLE 1% CREAM 30 GM TUBE TOP SCH ×2 (09:04→21:56)
[2019-12-09] MEDS: Z GUARD REMEDY PASTE 57 GM TUBE TOP SCH ×2 (09:04→21:57)
[2019-12-09 12:37] LABS: *BLOOD, URINE NEGATIVE (NEGATIVE); *CLARITY,URINE CLOUDY (CLEAR); *COLOR,URINE YELLOW (YELLOW); *KETONES,URINE NEGATIVE (NEGATIVE); LEUKOCYTE ESTERASE ,URINE 1+ (NEGATIVE); NITRITE, URINE NEGATIVE (NEGATIVE); PH,URINE 5.5 (5.0-8.0); UGLUCOSE NEGATIVE (NEGATIVE)
[2019-12-09 12:38] LABS: *BILIRUBIN,URIN 1+ (NEGATIVE)
[2019-12-09] MEDS: HYDROCODONE/APAP 10-325 MG TABLET PO PRN (14:43)
[2019-12-09 16:06] VITALS: BP 117/56
[2019-12-09] MEDS: ENSURE ENLIVE (VAN) 240 ML LIQUID PO SCH (17:16)
[2019-12-09 18:13] LABS: BACTERIA,URINE FEW /HPF (NONE SEEN); RBC,URINE 0-3 /HPF (0-3); SQUAMOUS EPITHELIAL CELL,UR FEW /HPF (NONE SEEN); URINE AMORPHOUS URATE FEW /HPF
--- NOTE | 2019-12-09 18:52 | NUR ---
Patient is resting comfortably in bed. No sign of distress noted. All medication given as ordered. Patient had a critical lab today hgb 7.1, notified and placed order for urine culture and occult blood. Urine collected and sent but patient has not produced a bowel movement on my shift. Patient can be forgetful and needs constant reorientation, he family has made a reminder book for her that is kept on the table in her room. safety precautions in place with call light and belongings within reach. Will endorse to oncoming nurse.
--- NOTE | 2019-12-09 20:00 | NUR ---
Received pt resting in bed watching TV. No acute distress noted. Denies any pain at the moment.Safety measures maintained. Call light and personal items within reach. Will continue to monitor.
[2019-12-09 20:41] VITALS: BP 105/54
[2019-12-09] MEDS: CALCIUM CARBONATE 600 MG TABLET PO SCH (21:55)
[2019-12-09] MEDS: OMEGA-3 FATTY ACIDS/FISH OIL CAPSULE PO SCH (21:56)
[2019-12-09] MEDS: CITALOPRAM 20 MG TABLET PO SCH (21:56)
[2019-12-09] MEDS: AMITRIPTYLINE HCL 50 MG TABLET PO SCH (21:56)
[2019-12-09] MEDS: ASCORBIC ACID 500 MG TABLET PO SCH (21:56)
[2019-12-09] MEDS: ATORVASTATIN 10 MG TABLET PO SCH (21:56)
[2019-12-09] MEDS: CYANOCOBALAMIN 1,000 MCG TABLET PO SCH (21:56)
[2019-12-09] MEDS: INDOMETHACIN 25 MG CAPSULE PO SCH (21:57)
--- NOTE | 2019-12-09 22:00 | NUR ---
Patient does not report any pain. Skin care and wound care completed. All due medication administered. VVS. Applied Z guard and Lotrimin then covered with foam mepilex. Turned and repositioned. Patient kept comfortable, able to make needs known. Safety measures maintained. Call light and personal items within reach. Will continue to monitor.
[2019-12-10 05:07] VITALS: BP 117/60
[2019-12-10 08:19] VITALS: BP 104/57
[2019-12-10] MEDS: METOPROLOL TARTRATE 25 MG TABLET PO SCH ×2 (09:00→20:28)
[2019-12-10] MEDS: ACIDOPHILUS/BULGARICUS CHEW TAB PO SCH ×2 (09:05→16:38)
[2019-12-10] MEDS: CLOTRIMAZOLE 1% CREAM 30 GM TUBE TOP SCH ×2 (09:07→20:30)
[2019-12-10] MEDS: Z GUARD REMEDY PASTE 57 GM TUBE TOP SCH ×2 (09:07→20:29)
[2019-12-10] MEDS: ENSURE ENLIVE (VAN) 240 ML LIQUID PO SCH ×2 (09:07→16:38)
[2019-12-10] MEDS: HYDROCODONE/APAP 10-325 MG TABLET PO PRN (10:53)
[2019-12-10 12:39] LABS: *OCCULT BLOOD STOOL NEGATIVE (NEGATIVE)
[2019-12-10 15:30] VITALS: BP 100/44
--- NOTE | 2019-12-10 16:56 | NUR ---
no changes noted during shift, tolerated PT, OT services well, able to void, continue with tx to rashes to the perineal area, and groin area, kept clean and dry.
--- NOTE | 2019-12-10 19:30 | NUR ---
Sleeping during initial rounds. No s/s of respiratory distress. Safety measures and fall prevention maintained. Continue care as planned.
[2019-12-10 20:00] VITALS: BP 115/64
[2019-12-10] MEDS: INDOMETHACIN 25 MG CAPSULE PO SCH (20:16)
[2019-12-10] MEDS: AMITRIPTYLINE HCL 50 MG TABLET PO SCH (20:27)
[2019-12-10] MEDS: ASCORBIC ACID 500 MG TABLET PO SCH (20:27)
[2019-12-10] MEDS: OMEGA-3 FATTY ACIDS/FISH OIL CAPSULE PO SCH (20:28)
[2019-12-10] MEDS: CITALOPRAM 20 MG TABLET PO SCH (20:28)
[2019-12-10] MEDS: CALCIUM CARBONATE 600 MG TABLET PO SCH (20:28)
[2019-12-10] MEDS: CYANOCOBALAMIN 1,000 MCG TABLET PO SCH (20:28)
[2019-12-10] MEDS: ATORVASTATIN 10 MG TABLET PO SCH (20:29)
[2019-12-11 05:11] VITALS: BP 132/75
--- NOTE | 2019-12-11 05:45 | NUR ---
Shift End Report: Slept mostly during the night. No complaint presented. All needs attended and met. Continue current rehab plan of care.
[2019-12-11 06:30] LABS: BASOPHILS # (AUTO) 0.1 K/uL (0.0-8.0); BASOPHILS % (AUTO) 0.9 % (0.0-2.0); EOSINOPHILS # (AUTO) 0.2 K/uL (0.0-0.7); EOSINOPHILS % (AUTO) 3.6 % (0.0-7.0); HEMATOCRIT 22.6 % (31.2-41.9); HEMOGLOBIN 7.5 g/dL (10.9-14.3); LYMPHOCYTES # (AUTO) 1.1 K/uL (20.0-40.0); MEAN CORPUSCULAR HEMOGLOBIN 29.8 uug (24.7-32.8); MEAN CORPUSCULAR HGB CONC 33 g/dL (32.3-35.6); MEAN CORPUSCULAR VOLUME 89.3 fL (75.5-95.3); MONOCYTES # (AUTO) 0.4 K/uL (2.0-10.0); MONOCYTES % (AUTO) 6.4 % (0.0-11.0); NEUTROPHILS # (AUTO) 4.8 K/uL (1.8-8.9); NEUTROPHILS % (AUTO) 73.1 % (38.5-71.5); PLATELET COUNT (AUTO) 420 K/uL (179-408); RED BLOOD CELL COUNT(AUTO) 2.53 MIL/uL (3.63-4.92); WHITE BLOOD COUNT (AUTO) 6.6 K/uL (3.8-11.8)
[2019-12-11 06:38] LABS: BILIRUBIN,TOTAL 0.3 mg/dL (0.2-1.0); CREATININE 0.9 mg/dL (0.6-1.3); MAGNESIUM 2.4 mg/dL (1.8-2.4); PHOSPHOROUS 4.6 mg/dL (2.5-4.9); POTASSIUM 4.3 mmol/L (3.5-5.1); TOTAL PROTEIN, SERUM 5.7 g/dL (6.4-8.2)
[2019-12-11 08:50] VITALS: BP 119/56
[2019-12-11] MEDS: ACIDOPHILUS/BULGARICUS CHEW TAB PO SCH ×2 (08:57→16:34)
[2019-12-11] MEDS: METOPROLOL TARTRATE 25 MG TABLET PO SCH ×2 (08:58→20:55)
[2019-12-11] MEDS: CLOTRIMAZOLE 1% CREAM 30 GM TUBE TOP SCH ×2 (08:58→20:56)
[2019-12-11] MEDS: ENSURE ENLIVE (VAN) 240 ML LIQUID PO SCH ×2 (08:58→16:37)
[2019-12-11] MEDS: Z GUARD REMEDY PASTE 57 GM TUBE TOP SCH ×2 (08:59→20:59)
[2019-12-11 15:31] VITALS: BP 99/50
--- NOTE | 2019-12-11 15:43 | NUR ---
no changes noted, patient denied any pain, incision site is clean and dry, patient is supervision with adls, tolerated PT, OT services well.
--- NOTE | 2019-12-11 16:05 | NUR ---
Patient herself and her name Seamus requested and gave consent for flu shot
[2019-12-11] MEDS ORDERED: INFLUENZA VACCINE 2020-2021 0.5 ML DISP.SYRIN IM ONE (17:00)
--- NOTE | 2019-12-11 17:00 | NUR ---
PATIENT IS VOIDING WELL.
[2019-12-11 17:50] VITALS: BP 112/54
--- NOTE | 2019-12-11 20:02 | NUR ---
INTERDISCIPLINARY TEAM CONFERENCE
[2019-12-11 20:38] VITALS: BP 116/53
[2019-12-11] MEDS: AMITRIPTYLINE HCL 50 MG TABLET PO SCH (20:53)
[2019-12-11] MEDS: CALCIUM CARBONATE 600 MG TABLET PO SCH (20:53)
[2019-12-11] MEDS: CYANOCOBALAMIN 1,000 MCG TABLET PO SCH (20:53)
[2019-12-11] MEDS: CITALOPRAM 20 MG TABLET PO SCH (20:53)
[2019-12-11] MEDS: ASCORBIC ACID 500 MG TABLET PO SCH (20:54)
[2019-12-11] MEDS: INDOMETHACIN 25 MG CAPSULE PO SCH (20:55)
[2019-12-11] MEDS: ATORVASTATIN 10 MG TABLET PO SCH (20:55)
[2019-12-11] MEDS: OMEGA-3 FATTY ACIDS/FISH OIL CAPSULE PO SCH (21:06)
--- NOTE | 2019-12-12 00:28 | NUR ---
Awake alert and oriented x3 Forgetful at times. VSS. All due meds given as ordered. Tolerated po meds well. Denies any pain nor any discomfort. Continent of bowel and bladder. OOB to the BR with supervision. Voiding well. Will monitor patient. No acute distress noted. All needs attended and met. Right hip incision NETWORK CONSULTANT.
[2019-12-12 04:08] VITALS: BP 122/67
--- NOTE | 2019-12-12 06:40 | NUR ---
End of shift notes: Uneventful night. Slept well. OOB to the BR with walkerwith supervision. Voiding freely. Will monitor patient. VSS. Kept comfortable.
[2019-12-12 07:30] VITALS: BP 135/57
[2019-12-12] MEDS: ACIDOPHILUS/BULGARICUS CHEW TAB PO SCH ×2 (10:41→17:42)
[2019-12-12] MEDS: METOPROLOL TARTRATE 25 MG TABLET PO SCH ×2 (10:42→20:50)
[2019-12-12] MEDS: ENSURE ENLIVE (VAN) 240 ML LIQUID PO SCH ×2 (10:42→17:42)
[2019-12-12] MEDS: CLOTRIMAZOLE 1% CREAM 30 GM TUBE TOP SCH ×2 (10:43→20:55)
[2019-12-12] MEDS: Z GUARD REMEDY PASTE 57 GM TUBE TOP SCH ×2 (10:44→20:56)
[2019-12-12 15:39] VITALS: BP 106/50
[2019-12-12 20:25] VITALS: BP 120/57
[2019-12-12] MEDS: AMITRIPTYLINE HCL 50 MG TABLET PO SCH (20:48)
[2019-12-12] MEDS: ASCORBIC ACID 500 MG TABLET PO SCH (20:48)
[2019-12-12] MEDS: OMEGA-3 FATTY ACIDS/FISH OIL CAPSULE PO SCH (20:48)
[2019-12-12] MEDS: CALCIUM CARBONATE 600 MG TABLET PO SCH (20:49)
[2019-12-12] MEDS: ATORVASTATIN 10 MG TABLET PO SCH (20:49)
[2019-12-12] MEDS: CITALOPRAM 20 MG TABLET PO SCH (20:49)
[2019-12-12] MEDS: CYANOCOBALAMIN 1,000 MCG TABLET PO SCH (20:49)
[2019-12-12] MEDS: HYDROCODONE/APAP 10-325 MG TABLET PO PRN (20:50)
[2019-12-12] MEDS: INDOMETHACIN 25 MG CAPSULE PO SCH (20:51)
--- NOTE | 2019-12-12 22:43 | NUR ---
awake upon initial rounds. aaox3. Forgetful at times. VSS. Needs attended. Continent of bowel and bladder. Right hip incision SAIMA. Medicated with [place] for pain with relief noted. Kept comfortable.Will monitor patient.
--- NOTE | 2019-12-13 02:50 | NUR ---
Found patient on the floor without calling nurse.VSS BP 115/54 HR 89 Resp 18 Temp 98 pulse ox 96% Assisted back to bed. Call carrillo within reach Dr Tsai aware. Ordered bilateral hip Xrays STAT. Denies any pain nor any discomfort. Siderails up for safety. Bed alarm on.
[2019-12-13 04:55] VITALS: BP 121/76
--- NOTE | 2019-12-13 06:46 | NUR ---
End of shift notes: Bilateral hip Xrays done, no evidence of "new" fracture. Xrays normal. Denies any pain nor any discomfort noted. Siderails up for safety. Will monitor patient.
[2019-12-13 08:00] VITALS: BP 106/55
[2019-12-13] MEDS: ACIDOPHILUS/BULGARICUS CHEW TAB PO SCH ×2 (10:31→17:46)
[2019-12-13] MEDS: ENSURE ENLIVE (VAN) 240 ML LIQUID PO SCH ×2 (10:32→17:00)
[2019-12-13] MEDS: METOPROLOL TARTRATE 25 MG TABLET PO SCH ×2 (10:32→20:18)
[2019-12-13] MEDS: Z GUARD REMEDY PASTE 57 GM TUBE TOP SCH ×2 (10:36→20:19)
[2019-12-13] MEDS: FERROUS GLUCONATE 324 MG TABLET PO SCH (14:25)
[2019-12-13 16:00] VITALS: BP 109/50
[2019-12-13] MEDS: CLOTRIMAZOLE 1% CREAM 30 GM TUBE TOP SCH ×2 (17:46→20:19)
[2019-12-13 20:12] VITALS: BP 110/54
[2019-12-13] MEDS: AMITRIPTYLINE HCL 50 MG TABLET PO SCH (20:17)
[2019-12-13] MEDS: CALCIUM CARBONATE 600 MG TABLET PO SCH (20:17)
[2019-12-13] MEDS: CYANOCOBALAMIN 1,000 MCG TABLET PO SCH (20:17)
[2019-12-13] MEDS: ASCORBIC ACID 500 MG TABLET PO SCH (20:17)
[2019-12-13] MEDS: OMEGA-3 FATTY ACIDS/FISH OIL CAPSULE PO SCH (20:17)
[2019-12-13] MEDS: CITALOPRAM 20 MG TABLET PO SCH (20:17)
[2019-12-13] MEDS: INDOMETHACIN 25 MG CAPSULE PO SCH (20:18)
--- NOTE | 2019-12-13 21:03 | NUR ---
Received pt resting in bed and watching tv. AAO x3, forgetful. No acute distress noted. Denies pain/ discomfort. Due meds given as ordered. Safety measures maintained. Bed alarm on. Call light and personal items within reach. Will continue to monitor.
[2019-12-14 05:22] VITALS: BP 127/59
[2019-12-14] MEDS: PANTOPRAZOLE SODIUM 40 MG TABLET.DR PO SCH (06:26)
[2019-12-14 06:47] LABS: BILIRUBIN,TOTAL 0.2 mg/dL (0.2-1.0); POTASSIUM 4.3 mmol/L (3.5-5.1); TOTAL PROTEIN, SERUM 6.2 g/dL (6.4-8.2)
[2019-12-14] MEDS: ENSURE ENLIVE (VAN) 240 ML LIQUID PO SCH ×2 (08:00→17:12)
[2019-12-14] MEDS: ACIDOPHILUS/BULGARICUS CHEW TAB PO SCH ×2 (08:29→17:12)
[2019-12-14] MEDS: FERROUS GLUCONATE 324 MG TABLET PO SCH (08:29)
[2019-12-14] MEDS: CLOTRIMAZOLE 1% CREAM 30 GM TUBE TOP SCH ×2 (08:30→20:34)
[2019-12-14] MEDS: Z GUARD REMEDY PASTE 57 GM TUBE TOP SCH ×2 (08:30→20:34)
[2019-12-14] MEDS: METOPROLOL TARTRATE 25 MG TABLET PO SCH ×2 (08:32→20:33)
[2019-12-14 08:46] VITALS: BP 133/88
--- NOTE | 2019-12-14 10:00 | NUR ---
no distress , right hip incision dry and intact, needs attended, safety measures maintained, call light within reach
[2019-12-14 11:49] LABS: *BILIRUBIN,URIN NEGATIVE (NEGATIVE); *BLOOD, URINE NEGATIVE (NEGATIVE); *CLARITY,URINE SLIGHTLY CLOUDY (CLEAR); *COLOR,URINE YELLOW (YELLOW); *KETONES,URINE NEGATIVE (NEGATIVE); *UROBILINOGEN,URINE 0.2 E.U./dl (NORMAL); LEUKOCYTE ESTERASE ,URINE TRACE (NEGATIVE); NITRITE, URINE NEGATIVE (NEGATIVE); UGLUCOSE NEGATIVE (NEGATIVE)
[2019-12-14 14:56] LABS: BACTERIA,URINE RARE /HPF (NONE SEEN); RBC,URINE 0-3 /HPF (0-3)
[2019-12-14 14:57] LABS: CALCIUM OXALATE CRYSTALS,UR RARE /HPF (NONE SEEN)
[2019-12-14 15:35] VITALS: BP 101/49
--- NOTE | 2019-12-14 18:39 | NUR ---
resting in bed, no acute distress noted, all needs attended and met, call light within reach
[2019-12-14] MEDS: AMITRIPTYLINE HCL 50 MG TABLET PO SCH (20:33)
[2019-12-14] MEDS: CITALOPRAM 20 MG TABLET PO SCH (20:33)
[2019-12-14] MEDS: ASCORBIC ACID 500 MG TABLET PO SCH (20:33)
[2019-12-14] MEDS: CALCIUM CARBONATE 600 MG TABLET PO SCH (20:33)
[2019-12-14] MEDS: OMEGA-3 FATTY ACIDS/FISH OIL CAPSULE PO SCH (20:33)
[2019-12-14] MEDS: CYANOCOBALAMIN 1,000 MCG TABLET PO SCH (20:33)
[2019-12-14] MEDS: INDOMETHACIN 25 MG CAPSULE PO SCH (20:33)
[2019-12-14 20:34] VITALS: BP 125/81
[2019-12-15 04:55] VITALS: BP 118/66
[2019-12-15] MEDS: PANTOPRAZOLE SODIUM 40 MG TABLET.DR PO SCH (06:04)
[2019-12-15 08:39] VITALS: BP 117/61
[2019-12-15] MEDS: ACIDOPHILUS/BULGARICUS CHEW TAB PO SCH ×2 (08:57→17:15)
[2019-12-15] MEDS: METOPROLOL TARTRATE 25 MG TABLET PO SCH ×2 (08:58→20:51)
[2019-12-15] MEDS: FERROUS GLUCONATE 324 MG TABLET PO SCH (09:00)
[2019-12-15] MEDS: CLOTRIMAZOLE 1% CREAM 30 GM TUBE TOP SCH ×2 (09:03→20:54)
[2019-12-15] MEDS: ENSURE ENLIVE (VAN) 240 ML LIQUID PO SCH ×2 (09:03→17:15)
[2019-12-15] MEDS: Z GUARD REMEDY PASTE 57 GM TUBE TOP SCH ×2 (09:04→20:54)
[2019-12-15 15:08] VITALS: BP 115/56
[2019-12-15 20:00] VITALS: BP 125/71
[2019-12-15] MEDS: AMITRIPTYLINE HCL 50 MG TABLET PO SCH (20:50)
[2019-12-15] MEDS: CALCIUM CARBONATE 600 MG TABLET PO SCH (20:50)
[2019-12-15] MEDS: CYANOCOBALAMIN 1,000 MCG TABLET PO SCH (20:50)
[2019-12-15] MEDS: CITALOPRAM 20 MG TABLET PO SCH (20:50)
[2019-12-15] MEDS: OMEGA-3 FATTY ACIDS/FISH OIL CAPSULE PO SCH (20:51)
[2019-12-15] MEDS: ASCORBIC ACID 500 MG TABLET PO SCH (20:51)
[2019-12-15] MEDS: INDOMETHACIN 25 MG CAPSULE PO SCH (20:52)
--- NOTE | 2019-12-16 01:47 | NUR ---
aaox3 forgetful at times. 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 Denies any pain at this time. Kept comfortable. VSS. No acute distress noted. nO acute distress noted. Will monitor\ patient.
--- NOTE | 2019-12-16 02:10 | NUR ---
Resting in bed upon initial rounds. AAox4 needs attended. VSS. Kept comfortable. Right hip incision healing.All due meds given. Tolerated well.Will monitor patient. Fall precautions maintained.
[2019-12-16 04:00] VITALS: BP 113/57
[2019-12-16] MEDS: PANTOPRAZOLE SODIUM 40 MG TABLET.DR PO SCH (06:37)
--- NOTE | 2019-12-16 06:50 | NUR ---
End of shift notes: aaox3-4 Needs attended. VSS Kept comfortable. Slept well throughout the night. OOB with walker with supervision to the BR. Voiding well. Needs attended and met.
[2019-12-16 08:00] VITALS: BP 120/58
[2019-12-16] MEDS: ACIDOPHILUS/BULGARICUS CHEW TAB PO SCH ×2 (08:46→17:03)
[2019-12-16] MEDS: METOPROLOL TARTRATE 25 MG TABLET PO SCH ×2 (08:47→20:46)
[2019-12-16] MEDS: FERROUS GLUCONATE 324 MG TABLET PO SCH (08:48)
[2019-12-16] MEDS: ENSURE ENLIVE (VAN) 240 ML LIQUID PO SCH ×2 (08:53→17:03)
[2019-12-16] MEDS: Z GUARD REMEDY PASTE 57 GM TUBE TOP SCH ×2 (08:53→20:50)
[2019-12-16] MEDS: CLOTRIMAZOLE 1% CREAM 30 GM TUBE TOP SCH ×2 (08:54→20:52)
[2019-12-16 15:58] VITALS: BP 122/63
--- NOTE | 2019-12-16 17:51 | NUR ---
no changes noted during shift, patient is standby appeals assistant with adls, kept comfortable.
[2019-12-16 20:20] VITALS: BP 126/57
[2019-12-16] MEDS: OMEGA-3 FATTY ACIDS/FISH OIL CAPSULE PO SCH (20:45)
[2019-12-16] MEDS: CALCIUM CARBONATE 600 MG TABLET PO SCH (20:45)
[2019-12-16] MEDS: CITALOPRAM 20 MG TABLET PO SCH (20:45)
[2019-12-16] MEDS: AMITRIPTYLINE HCL 50 MG TABLET PO SCH (20:45)
[2019-12-16] MEDS: CYANOCOBALAMIN 1,000 MCG TABLET PO SCH (20:45)
[2019-12-16] MEDS: ASCORBIC ACID 500 MG TABLET PO SCH (20:45)
[2019-12-16] MEDS: INDOMETHACIN 25 MG CAPSULE PO SCH (20:46)
--- NOTE | 2019-12-16 23:46 | NUR ---
Condition unchanged. OOB to the BR with walker. Voiding well. VSS. Needs attended. All due meds given as ordered. No acute distress noted. Denies any pain nor any discomfort.Will monitor patient.
[2019-12-17 04:00] VITALS: BP 128/60
[2019-12-17] MEDS: PANTOPRAZOLE SODIUM 40 MG TABLET.DR PO SCH (06:22)
--- NOTE | 2019-12-17 06:52 | NUR ---
End of shift notes: Quiet night. aaiox4 OOB to the BR with walker with supervision. Voiding without difficulty. No complaints presented during shift. VSS.
[2019-12-17 07:31] VITALS: BP 123/61
[2019-12-17] MEDS: METOPROLOL TARTRATE 25 MG TABLET PO SCH ×2 (08:31→20:48)
[2019-12-17] MEDS: ACIDOPHILUS/BULGARICUS CHEW TAB PO SCH ×2 (08:31→16:18)
[2019-12-17] MEDS: ENSURE ENLIVE (VAN) 240 ML LIQUID PO SCH ×2 (08:32→16:18)
[2019-12-17] MEDS: CLOTRIMAZOLE 1% CREAM 30 GM TUBE TOP SCH ×2 (08:32→20:51)
[2019-12-17] MEDS: FERROUS GLUCONATE 324 MG TABLET PO SCH (08:32)
[2019-12-17] MEDS: Z GUARD REMEDY PASTE 57 GM TUBE TOP SCH ×2 (08:34→20:52)
--- NOTE | 2019-12-17 11:58 | NUR ---
per md there is no need to recollect urine, patient is asymptomatic, no hematuria, urine clear yellow, patient denied any dysuria.
--- NOTE | 2019-12-17 12:56 | NUR ---
patient verbalized feeling nervous sometimes, however patient stated she can manage most of the time, teaching provided with some coping mechanisms, verbalized understanding of it.
[2019-12-17 15:51] VITALS: BP 127/55
[2019-12-17 20:00] VITALS: BP 116/84
[2019-12-17] MEDS: ASCORBIC ACID 500 MG TABLET PO SCH (20:46)
[2019-12-17] MEDS: CITALOPRAM 20 MG TABLET PO SCH (20:47)
[2019-12-17] MEDS: CYANOCOBALAMIN 1,000 MCG TABLET PO SCH (20:47)
[2019-12-17] MEDS: CALCIUM CARBONATE 600 MG TABLET PO SCH (20:47)
[2019-12-17] MEDS: AMITRIPTYLINE HCL 50 MG TABLET PO SCH (20:47)
[2019-12-17] MEDS: OMEGA-3 FATTY ACIDS/FISH OIL CAPSULE PO SCH (20:47)
[2019-12-17] MEDS: INDOMETHACIN 25 MG CAPSULE PO SCH (20:48)
--- NOTE | 2019-12-18 00:58 | NUR ---
aaox3-4 Forgetful at times. All due meds given as ordered. VSS. Kept comfortable. Will monitor patient. Ambulates with walker with supervision to the BR. Voiding well. No acute distress noted.
[2019-12-18 05:21] VITALS: BP 115/74
[2019-12-18 05:22] VITALS: BP 136/71
[2019-12-18] MEDS: PANTOPRAZOLE SODIUM 40 MG TABLET.DR PO SCH (06:11)
--- NOTE | 2019-12-18 06:49 | NUR ---
End of shift notes: Quiet night. Slept well. Ambulates to the BR with walker with supervision. Voiding well. Will monitor patient. No complaints made.
[2019-12-18] MEDS: ACIDOPHILUS/BULGARICUS CHEW TAB PO SCH ×2 (08:13→16:16)
[2019-12-18] MEDS: METOPROLOL TARTRATE 25 MG TABLET PO SCH ×2 (08:13→21:01)
[2019-12-18] MEDS: Z GUARD REMEDY PASTE 57 GM TUBE TOP SCH ×2 (08:14→21:02)
[2019-12-18] MEDS: CLOTRIMAZOLE 1% CREAM 30 GM TUBE TOP SCH ×2 (08:14→21:14)
[2019-12-18] MEDS: ENSURE ENLIVE (VAN) 240 ML LIQUID PO SCH ×2 (08:15→16:17)
[2019-12-18] MEDS: FERROUS GLUCONATE 324 MG TABLET PO SCH (08:15)
[2019-12-18 08:17] VITALS: BP 121/61
--- NOTE | 2019-12-18 11:50 | NUR ---
patient VTE score 0, frequent ambulatory, independent with adls, changes position herself.
--- NOTE | 2019-12-18 15:11 | NUR ---
no distress noted, patient is ambulatory, independent with adls, denied any pain, needs met timely
[2019-12-18 16:00] VITALS: BP 106/65
--- NOTE | 2019-12-18 19:53 | NUR ---
INTERDISCIPLINARY TEAM CONFERENCE
[2019-12-18 20:19] VITALS: BP 123/51
[2019-12-18] MEDS: AMITRIPTYLINE HCL 50 MG TABLET PO SCH (21:00)
[2019-12-18] MEDS: CITALOPRAM 20 MG TABLET PO SCH (21:00)
[2019-12-18] MEDS: OMEGA-3 FATTY ACIDS/FISH OIL CAPSULE PO SCH (21:00)
[2019-12-18] MEDS: CYANOCOBALAMIN 1,000 MCG TABLET PO SCH (21:00)
[2019-12-18] MEDS: CALCIUM CARBONATE 600 MG TABLET PO SCH (21:01)
[2019-12-18] MEDS: ASCORBIC ACID 500 MG TABLET PO SCH (21:01)
[2019-12-18] MEDS: INDOMETHACIN 25 MG CAPSULE PO SCH (21:04)
[2019-12-19 05:20] VITALS: BP 122/57
[2019-12-19] MEDS: PANTOPRAZOLE SODIUM 40 MG TABLET.DR PO SCH (06:07)
[2019-12-19 08:00] VITALS: BP 134/63
[2019-12-19] MEDS: METOPROLOL TARTRATE 25 MG TABLET PO SCH ×2 (08:48→20:27)
[2019-12-19] MEDS: ACIDOPHILUS/BULGARICUS CHEW TAB PO SCH ×2 (08:48→17:14)
[2019-12-19] MEDS: FERROUS GLUCONATE 324 MG TABLET PO SCH (08:48)
[2019-12-19] MEDS: CLOTRIMAZOLE 1% CREAM 30 GM TUBE TOP SCH ×2 (08:49→20:32)
[2019-12-19] MEDS: Z GUARD REMEDY PASTE 57 GM TUBE TOP SCH ×2 (08:49→20:33)
[2019-12-19] MEDS: ENSURE ENLIVE (VAN) 240 ML LIQUID PO SCH ×2 (08:49→17:14)
[2019-12-19 16:09] VITALS: BP 124/56
[2019-12-19 20:00] VITALS: BP 116/58
[2019-12-19] MEDS: INDOMETHACIN 25 MG CAPSULE PO SCH (20:26)
[2019-12-19] MEDS: OMEGA-3 FATTY ACIDS/FISH OIL CAPSULE PO SCH (20:27)
[2019-12-19] MEDS: CITALOPRAM 20 MG TABLET PO SCH (20:27)
[2019-12-19] MEDS: CALCIUM CARBONATE 600 MG TABLET PO SCH (20:27)
[2019-12-19] MEDS: AMITRIPTYLINE HCL 50 MG TABLET PO SCH (20:27)
[2019-12-19] MEDS: CYANOCOBALAMIN 1,000 MCG TABLET PO SCH (20:27)
[2019-12-19] MEDS: ASCORBIC ACID 500 MG TABLET PO SCH (20:27)
--- NOTE | 2019-12-19 21:18 | NUR ---
Received pt resting in bed and watching tv. AAO x3, forgetful at times. No acute distress noted. Denies pain/ discomfort. Due meds given as ordered. Pt to be discharge tomorrow, pickle pumper at 3pm. Safety measures maintained. Bed alarm on. Call light and personal items within reach. Will continue to monitor.
[2019-12-20 04:00] VITALS: BP 134/72
[2019-12-20] MEDS: PANTOPRAZOLE SODIUM 40 MG TABLET.DR PO SCH (06:15)
[2019-12-20 08:00] VITALS: BP 132/65
[2019-12-20 08:47] VITALS: BP 134/72
[2019-12-20] MEDS: FERROUS GLUCONATE 324 MG TABLET PO SCH (08:47)
[2019-12-20] MEDS: ACIDOPHILUS/BULGARICUS CHEW TAB PO SCH (08:47)
[2019-12-20] MEDS: ENSURE ENLIVE (VAN) 240 ML LIQUID PO SCH (08:47)
[2019-12-20] MEDS: METOPROLOL TARTRATE 25 MG TABLET PO SCH (08:47)
[2019-12-20] MEDS: CLOTRIMAZOLE 1% CREAM 30 GM TUBE TOP SCH (08:49)
[2019-12-20] MEDS: Z GUARD REMEDY PASTE 57 GM TUBE TOP SCH (08:50)
--- NOTE | 2019-12-20 15:24 | NUR ---
here to pick her up. belongings reconciled. d/c instructions discussed f/u appts, meds and dme. verbalize understanding. taken to car via w/c left with shower chair. vss
== END 2019-12-20 15:40 | disposition home health service (06) | DRG 559 ==
PROVIDERS: ADMIT Physical Medicine & Rehabilitation Pain Medicine; ATTEND Physical Medicine & Rehabilitation Pain Medicine
DX: M97.01XD Periprosthetic fracture around internal prosthetic right hip joint, subsequent encounter (principal); E43 Unspecified severe protein-calorie malnutrition; D62 Acute posthemorrhagic anemia; W19.XXXD Unspecified fall, subsequent encounter; Z87.440 Personal history of urinary (tract) infections; Z96.643 Presence of artificial hip joint, bilateral; I10 Essential (primary) hypertension; I44.7 Left bundle-branch block, unspecified; M51.36 Other intervertebral disc degeneration, lumbar region; M19.90 Unspecified osteoarthritis, unspecified site; M06.9 Rheumatoid arthritis, unspecified; Z91.81 History of falling; E78.5 Hyperlipidemia, unspecified; F03.90 Unspecified dementia, unspecified severity, without behavioral disturbance, psychotic disturbance, mood disturbance, and anxiety; F32.9 Major depressive disorder, single episode, unspecified; G89.4 Chronic pain syndrome; I11.0 Hypertensive heart disease with heart failure; I50.9 Heart failure, unspecified; M25.78 Osteophyte, vertebrae; M48.04 Spinal stenosis, thoracic region; R29.6 Repeated falls; R26.81 Unsteadiness on feet; Z88.1 Allergy status to other antibiotic agents; Z88.3 Allergy status to other anti-infective agents; Z88.0 Allergy status to penicillin; Z88.8 Allergy status to other drugs, medicaments and biological substances; Z91.018 Allergy to other foods; R19.5 Other fecal abnormalities
CPT/HCPCS: 36415; 73501; 73502; 83550; 83735; 84100; 85025; 87086; 90686

== ENCOUNTER 2020-04-30 20:52 | Inpatient (IN) | payer MEDICARE, OTHER ==
[~2020-04-30] VITALS: Ht 170.2 cm; Wt 63.0 kg
--- NOTE | 2020-04-30 20:00 | NUR ---
Received a 84 yr old female from [facility] with admitting diagnosis of acute coronary syndrome. Hx of HTN, Anxiety, Bilateral hip/knee replacement, chronic low back pains, CHF. AAOx3-4 with periods of forgetfulness at times. Needs attended. VSS. OOB to the BR with standby assist. Voiding well. Denies any pain nor any discomfort. Patient admitted for rehab. Dr Orozco aware of patient's admission and he said he will reconcile her meds in am. Dr Russo also made aware of patient's admission. No acute distress noted.
[~2020-04-30 20:52] MED LIST changes: +ACET325T53 PO; -ACID1TAB4 PO; -ALBU6.7H9 INH; -ASCO500C18 PO; +ASPI81TA31 PO; +ATOR10TA PO; -CALC600T35 PO; +CARV6.252 PO; -CYAN-51 PO; -DIAZ5TAB4 PO; +DOCU100C36 PO; -HYDR-3980 PO; -INDO-12 PO; +INDO75CA3 PO; +LOSA25TA3 PO; -LOVA20TA2 PO; +LOVA40TA2 PO; -METO25TA6 PO; -NIFE-35 PO; -OMEG1CAP PO; -OXYC-133 PO; +PANT40TA2 PO; -[UNRECOGNIZED DRUG - CODE] PO
[2020-04-30] MEDS ORDERED: Z GUARD REMEDY PASTE 57 GM TUBE TOP PRN (21:00)
[2020-04-30] MEDS ORDERED: ZOLP5TAB2 PO (21:29)
[2020-04-30] MEDS ORDERED: ATOR40TA PO (21:29)
[2020-04-30] MEDS ORDERED: DOCU250C14 PO (21:29)
[2020-04-30] MEDS ORDERED: ASPI81TA31 PO (21:29)
[2020-04-30] MEDS ORDERED: LOSA25TA27 PO (21:29)
[2020-04-30] MEDS ORDERED: ACET-2154 PO (21:29)
[2020-04-30] MEDS ORDERED: MORP1SYR2 IVP (21:29)
[2020-04-30] MEDS ORDERED: PANT40TA2 PO (21:29)
[2020-04-30] MEDS ORDERED: CARV6.25 PO (21:29)
[2020-05-01 05:57] VITALS: BP 134/87
[2020-05-01 08:00] VITALS: BP 124/79
--- NOTE | 2020-05-01 08:30 | NUR ---
RECEIVED PATIENT IN BED AWAKE ALERT AND ORIENTED ON ROOM AIR WITH NO SHORTNESS OF BREATH AT THIS TIME STATED HAS SOME ACHES AND PAIN RELATED TO PREVIOUS HIP AND KNEE SURGERY BUT STATED THAT SHE IS OKAY AT THIS TIME AWAITING FOR DR ALVARENGA TO RECONCILE MEDS.WILL CONTINUE TO OBSERVE
[2020-05-01] MEDS ORDERED: ACETAMINOPHEN 325 MG TABLET PO PRN (10:00)
[2020-05-01] MEDS ORDERED: ZOLPIDEM 5 MG TABLET PO PRN (10:00)
--- NOTE | 2020-05-01 10:20 | NUR ---
PATIENT HOME MEDICATIONS RECONCILED AT THIS TIME.
[2020-05-01] MEDS: LOSARTAN POTASSIUM 25 MG TABLET PO SCH (10:27)
[2020-05-01] MEDS: ASPIRIN 81 MG TAB.CHEW PO SCH (10:27)
[2020-05-01 15:30] VITALS: BP 120/73
[2020-05-01] MEDS: CARVEDILOL 6.25 MG TABLET PO SCH (17:21)
[2020-05-01 20:15] VITALS: BP 117/71
[2020-05-01] MEDS: ATORVASTATIN 10 MG TABLET PO SCH (20:47)
[2020-05-01] MEDS: CITALOPRAM 20 MG TABLET PO SCH (20:47)
[2020-05-01] MEDS: DOCUSATE SODIUM 100 MG CAPSULE PO SCH (20:48)
[2020-05-02 05:59] VITALS: BP 126/66
[2020-05-02] MEDS: PANTOPRAZOLE SODIUM 40 MG TABLET.DR PO SCH (06:05)
--- NOTE | 2020-05-02 06:14 | NUR ---
Pt alert and oriented x 4, cooperative upon assessment, all needs met promptly. SPO2 on Room Air 95%. All VS WNL. Call light and personal belongings within reach.
[2020-05-02 07:30] VITALS: BP 140/77
[2020-05-02] MEDS: LOSARTAN POTASSIUM 25 MG TABLET PO SCH (08:15)
[2020-05-02] MEDS: ASPIRIN 81 MG TAB.CHEW PO SCH (08:15)
[2020-05-02] MEDS: CARVEDILOL 6.25 MG TABLET PO SCH ×2 (08:15→17:06)
--- NOTE | 2020-05-02 08:30 | NUR ---
RECEIVED PATIENT IN BED AWAKE ALERT AND ORIENTED.DENIES PAIN OR DISCOMFORTS AT THIS TIME DUE MEDICATIONS GIVEN AND TOLERATED WELL PATIENT CONTINUES ON PHYSICAL THERAPEUTIC EXERCISES AND ADL RETRAINING PROGRAM ORDERED. CALL LIGHTS AND PERSONAL BELONGINGS ARE WITHIN EASY REACH AT THIS TIME WILL CONTINUE TO OBSERVE.
[2020-05-02 16:00] VITALS: BP 121/69
--- NOTE | 2020-05-02 18:00 | NUR ---
AWAKE ALERT CONVERSING ON THE PHONE WITH HER FAMILY MEMBERS LONG PEROIDS OF TIME TOLERATED THERAPIES ORDERED STATED HAS SOME DISCOMFORTS AT TIMES OFFERED TO GIVE HER TYLENOL ORDERED BUT SHE STATED IT WAS OKAY AND BEARABLE AT THIS TIME.WILL CONTINUE TO OBSERVE.
--- NOTE | 2020-05-02 19:30 | NUR ---
RECEIVED PT AWAKE, ALERT AND ORIENTEDX4.PT IN NO ACUTE DISTRESS. SAFETY AND COMFORT PROVIDED. WILL CONTINUE TO MONITOR.
[2020-05-02 20:06] VITALS: BP 110/65
[2020-05-02] MEDS: ATORVASTATIN 10 MG TABLET PO SCH (20:52)
[2020-05-02] MEDS: CITALOPRAM 20 MG TABLET PO SCH (20:52)
[2020-05-02] MEDS: DOCUSATE SODIUM 100 MG CAPSULE PO SCH (20:55)
--- NOTE | 2020-05-02 22:00 | NUR ---
PT REFUSED HER COLACE MEDICATION. PT IN NO ACUTE DISTRESS.
[2020-05-03 04:00] VITALS: BP 114/66
[2020-05-03] MEDS: PANTOPRAZOLE SODIUM 40 MG TABLET.DR PO SCH (06:16)
--- NOTE | 2020-05-03 06:32 | NUR ---
PT IN NO ACUTE DISTRESS. PRESCRIBED MEDICATION GIVEN AND PT TOLERATED IT WELL. PT COOPERATIVE WITH CARE. SAFETY AND COMFORT PROVIDED. ALL NEEDS ARE MET. WILL ENDORSE TO INCOMING NURSE FOR CONTINUITY OF CARE.
[2020-05-03 08:13] VITALS: BP 122/65
[2020-05-03] MEDS: ASPIRIN 81 MG TAB.CHEW PO SCH (08:28)
[2020-05-03] MEDS: LOSARTAN POTASSIUM 25 MG TABLET PO SCH (08:28)
[2020-05-03] MEDS: CARVEDILOL 6.25 MG TABLET PO SCH ×2 (08:29→17:11)
--- NOTE | 2020-05-03 08:30 | NUR ---
RECEIVED PT IN BED AWAKE ALERT AND ORIENTED. PT STATED SLEPT OFF AND ON LAST NIGHT. HAS LITTLE BIT OF DISCOMFORT. OFFERED TYLENOL AND ACCEPTED. WILL ASK DR. JULIAN TO SEE IF HE CAN ORDER MORE PAIN MEDICATIONS FOR THE PATIENT. CALL LIGHT AND PERSONAL BELONGINGS WITHIN EASY REACH. PT IS EATING BREAKFAST AND RESTING COMFORTABLY. NO DISTRESS NOTED AT THIS TIME. WILL CONTINUE TO OBSERVE.
--- NOTE | 2020-05-03 09:07 | NUR ---
PT PICKED UP BY PHYSICAL THERAPY. AMBULATING WITH FRONT WHEEL WALKER WITH STANDBY CONTACT GUARD ASSIST WITH SLOW STEADY GAIT TO THE GYM FOR PHYSICAL THERAPEUTIC EXERCISES ORDERED. ALERT AND IN GOOD SPIRITS.
--- NOTE | 2020-05-03 09:40 | NUR ---
DR JULIAN NOTIFIED RE PATIENT HAS CHRONIC PAIN RELATED TO PREVIOUS SURGERY HAD REQUESTED FOR TYLENOL WHICH WAS THE ONLY ANALGESICS SHE HAD BUT NEEDED TO HAVE SOMETHING ELSE IN CASE SHE NEEDS SOMETHING STRONGER WITH ORDER FOR NORCO AND NOTED
--- NOTE | 2020-05-03 09:43 | NUR ---
PATIENT RETURNED BACK TO HER ROOM POST PHYSICAL THERAPY SESSION WALKING WITH THE FRONT WHEEL WALKER REMAIN ON GOOD MOOD COOPERATIVE IN SATISFACTORY CONDITION AT THIS TIME.
--- NOTE | 2020-05-03 14:40 | NUR ---
INDIVIDUALIZED PLAN OF CARE
[2020-05-03 15:58] VITALS: BP 106/67
--- NOTE | 2020-05-03 16:39 | NUR ---
PATIENT IS RESTING TALKING AT LONG PEROIDS WITH HER FAMILY AND FRIENDS DENIES DISCOMFORTS WILL CONTINUE TO OBSERVE AND PROVIDE COMFORT.
--- NOTE | 2020-05-03 18:53 | NUR ---
APPETITE WAS GOOD FOR DINNER DENIES DISCOMFORTS NOT IN DISTRESS AT THIS TIME.
[2020-05-03] MEDS: ATORVASTATIN 10 MG TABLET PO SCH (20:33)
[2020-05-03] MEDS: CITALOPRAM 20 MG TABLET PO SCH (20:33)
[2020-05-03] MEDS: DOCUSATE SODIUM 100 MG CAPSULE PO SCH (20:34)
[2020-05-03] MEDS: HYDROCODONE/APAP 5-325MG TABLET PO PRN (20:42)
--- NOTE | 2020-05-03 20:42 | NUR ---
patient verbalized pain of her right side of the back of the head near the right ear.offered Tylenol she said she needs something stronger . given [place] and able to swallow medication with water .advised to call for help call carrillo placed with in reach .
[2020-05-03 20:52] VITALS: BP 105/66
--- NOTE | 2020-05-03 22:30 | NUR ---
patient in bed awake no distress ,reading book .
[2020-05-04 04:55] VITALS: BP 123/72
[2020-05-04] MEDS: PANTOPRAZOLE SODIUM 40 MG TABLET.DR PO SCH (06:30)
--- NOTE | 2020-05-04 07:30 | NUR ---
RECEIVED CHANGE OF SHIFT REPORT ON PT. PT IN BED RESTING, AWAKE ALERT AND ORIENTED X4. PT ON ROOM AIR. PT HAS BATHROOM PRIVILEGES, STEADY GAIT, IV ACCESS ON THE LEFT AC SALINE LOCK, INTACT, PATENT. BED IN LOW AND LOCKED POSITION, CALL LIGHT WITHIN REACH, SAFETY PRECAUTIONS IN PLACE. WILL CONTINUE TO MONITOR.
[2020-05-04 08:00] VITALS: BP 122/68
[2020-05-04] MEDS: ASPIRIN 81 MG TAB.CHEW PO SCH (08:45)
[2020-05-04] MEDS: CARVEDILOL 6.25 MG TABLET PO SCH ×2 (08:45→17:22)
[2020-05-04] MEDS: LOSARTAN POTASSIUM 25 MG TABLET PO SCH (08:46)
--- NOTE | 2020-05-04 15:06 | NUR ---
INTERDISCIPLINARY TEAM CONFERENCE
[2020-05-04 16:00] VITALS: BP 100/48
--- NOTE | 2020-05-04 18:39 | NUR ---
PT IN BED RESTING, AWAKE ALERT AND ORIENTED X4. PT ON ROOM AIR, NO SIGNS OF DISTRESS NOTED, IV ACCESS ON THE LEFT AC SALINE LOCK 20G, MEDICATIONS GIVEN ORDERED, NO REPORTS OF PAIN NOTED. ALL NEEDS ADDRESSED DURING THIS SHIFT. PT CONTINENT OF BOWEL AND BLADDER, BRP. BED IN LOW AND LOCKED POSITION, CALL LIGHT WITHIN REACH, SAFETY AND FALL PRECAUTIONS IN PLACE, WILL ENDORSE TO ONCOMING NURSE.
[2020-05-04 20:20] VITALS: BP 130/75
[2020-05-04] MEDS: DOCUSATE SODIUM 100 MG CAPSULE PO SCH (20:46)
[2020-05-04] MEDS: ATORVASTATIN 10 MG TABLET PO SCH (20:46)
[2020-05-04] MEDS: CITALOPRAM 20 MG TABLET PO SCH (20:46)
[2020-05-04] MEDS: HYDROCODONE/APAP 5-325MG TABLET PO PRN (20:49)
[2020-05-05 04:16] VITALS: BP 124/72
--- NOTE | 2020-05-05 05:31 | NUR ---
NO acute changed noted throughout the shift. All due medications administered and tolerated well. Administered NORCO PRN, for generalized pain, effective. Pt slept well throughout the night. Needs attended to promptly. OOB and BRP to the bathroom with standby assist. Safety measures maintained. Call light and all personal items within pt reach. Will continue plan of care.
[2020-05-05] MEDS: PANTOPRAZOLE SODIUM 40 MG TABLET.DR PO SCH (06:03)
--- NOTE | 2020-05-05 07:30 | NUR ---
PT LYING IN BED RESTING, AWAKE ALERT AND ORIENTED X4, ON ROOM AIR NO SIGNS OF DISTRESS NOTED, NO REPORTS OF PAIN AT THIS TIME. PT IS CONTINENT OF BOWEL AND BLADDER, HAS BRP WITH STANDBY ASSIST. IV ACCESS ON THE LEFT AC SALINE LOCK 20G, PATENT, INTACT, NO SIGNS OF INFILTRATION. BED IN LOW AND LOCKED POSITION, SAFETY AND FALL PRECAUTIONS IN PLACE. WILL CONTINUE WITH PLAN OF CARE.
[2020-05-05 08:00] VITALS: BP 120/64
[2020-05-05] MEDS: ASPIRIN 81 MG TAB.CHEW PO SCH (09:18)
[2020-05-05] MEDS: LOSARTAN POTASSIUM 25 MG TABLET PO SCH (09:18)
[2020-05-05] MEDS: CARVEDILOL 6.25 MG TABLET PO SCH ×2 (09:20→17:53)
[2020-05-05 12:00] VITALS: BP 124/63
[2020-05-05 17:51] VITALS: BP 119/72
--- NOTE | 2020-05-05 18:23 | NUR ---
pt lying in bed resting, awake alert and oriented x4, on room air, no signs of distress no reports of pain noted. pt is continent of bowel and bladder, pt has BRP, on cardiac diet. pt has iv access on the left AC saline lock 20g, patent, no signs of infiltration. all medications given as prescribed, all needs tended too this shift, bed in low and locked position, call light within reach, safety and fall precautions in place, will endorse to oncoming nurse.
[2020-05-05] MEDS: HYDROCODONE/APAP 5-325MG TABLET PO PRN (18:55)
[2020-05-05 20:00] VITALS: BP 120/67
[2020-05-05] MEDS: DOCUSATE SODIUM 100 MG CAPSULE PO SCH (20:18)
[2020-05-05] MEDS: CITALOPRAM 20 MG TABLET PO SCH (20:18)
[2020-05-05] MEDS: ATORVASTATIN 10 MG TABLET PO SCH (20:18)
--- NOTE | 2020-05-05 20:51 | NUR ---
Received pt resting in bed and watching tv. AAO x4. No acute distress noted. Denies pain/ discomfort. Due meds given as ordered. Safety measures maintained. Call light and personal items within reach. Will continue to monitor.
[2020-05-06 04:00] VITALS: BP 112/61
[2020-05-06] MEDS: PANTOPRAZOLE SODIUM 40 MG TABLET.DR PO SCH (06:10)
[2020-05-06 08:00] VITALS: BP 119/69
[2020-05-06] MEDS: ASPIRIN 81 MG TAB.CHEW PO SCH (08:12)
[2020-05-06] MEDS: LOSARTAN POTASSIUM 25 MG TABLET PO SCH (08:13)
[2020-05-06] MEDS: CARVEDILOL 6.25 MG TABLET PO SCH ×2 (08:13→17:49)
[2020-05-06 15:49] VITALS: BP 116/64
[2020-05-06 20:15] VITALS: BP 122/66
[2020-05-06] MEDS: CITALOPRAM 20 MG TABLET PO SCH (21:07)
[2020-05-06] MEDS: ATORVASTATIN 10 MG TABLET PO SCH (21:07)
[2020-05-06] MEDS: DOCUSATE SODIUM 100 MG CAPSULE PO SCH (21:07)
--- NOTE | 2020-05-06 22:00 | NUR ---
No significant event reported tonight. All due medications administered and tolerated well.Pt slept well throughout the night. Needs attended to promptly. OOB and BRP to the bathroom with standby assist. Safety measures maintained. Call light and all personal items within pt reach. Will continue plan of care.
[2020-05-07 05:47] VITALS: BP 127/67
[2020-05-07] MEDS: PANTOPRAZOLE SODIUM 40 MG TABLET.DR PO SCH (05:59)
[2020-05-07 08:21] VITALS: BP 131/65
[2020-05-07] MEDS: ASPIRIN 81 MG TAB.CHEW PO SCH (11:07)
[2020-05-07] MEDS: CARVEDILOL 6.25 MG TABLET PO SCH ×2 (11:07→16:54)
[2020-05-07] MEDS: LOSARTAN POTASSIUM 25 MG TABLET PO SCH (11:07)
[2020-05-07 16:00] VITALS: BP 101/49
[2020-05-07 19:44] VITALS: BP 122/68
[2020-05-07] MEDS: CITALOPRAM 20 MG TABLET PO SCH (20:45)
[2020-05-07] MEDS: DOCUSATE SODIUM 100 MG CAPSULE PO SCH (20:45)
[2020-05-07] MEDS: ATORVASTATIN 10 MG TABLET PO SCH (20:45)
[2020-05-08 04:30] VITALS: BP 123/69
[2020-05-08] MEDS: PANTOPRAZOLE SODIUM 40 MG TABLET.DR PO SCH (06:12)
[2020-05-08 07:54] VITALS: BP 145/64
[2020-05-08] MEDS: ASPIRIN 81 MG TAB.CHEW PO SCH (08:43)
[2020-05-08] MEDS: LOSARTAN POTASSIUM 25 MG TABLET PO SCH (08:43)
[2020-05-08] MEDS: CARVEDILOL 6.25 MG TABLET PO SCH ×3 (08:43→18:03)
[2020-05-08] MEDS: HYDROCODONE/APAP 5-325MG TABLET PO PRN ×2 (08:46→21:14)
[2020-05-08 15:41] VITALS: BP 115/51
[2020-05-08 18:04] VITALS: BP 115/51
[2020-05-08 20:36] VITALS: BP 114/58
[2020-05-08] MEDS: CITALOPRAM 20 MG TABLET PO SCH (21:14)
[2020-05-08] MEDS: DOCUSATE SODIUM 100 MG CAPSULE PO SCH (21:15)
[2020-05-08] MEDS: ATORVASTATIN 10 MG TABLET PO SCH (21:15)
--- NOTE | 2020-05-09 02:57 | NUR ---
Received pt resting in bed and watching tv. AAO x4. VSS. No acute distress noted. c/o of headache 10/11, administered NORCO per pt request, effective. All due medications given as ordered. Needs attended to promptly. Pt sleeping comfortably. Safety measures maintained. Call light and personal items within reach. Will continue to monitor.
[2020-05-09 04:30] VITALS: BP 135/77
[2020-05-09] MEDS: PANTOPRAZOLE SODIUM 40 MG TABLET.DR PO SCH (06:09)
[2020-05-09] MEDS: ASPIRIN 81 MG TAB.CHEW PO SCH (08:04)
[2020-05-09] MEDS: LOSARTAN POTASSIUM 25 MG TABLET PO SCH (08:05)
[2020-05-09] MEDS: CARVEDILOL 6.25 MG TABLET PO SCH ×2 (08:07→17:45)
[2020-05-09 08:19] VITALS: BP 114/66
--- NOTE | 2020-05-09 08:45 | NUR ---
PATIENT COMPLAINED OF ARTHRITIC PAIN ON HER HAND AND A "SMALL HEADACHE." GIVEN PRN PAIN MEDICATION ORDERED.
[2020-05-09] MEDS: HYDROCODONE/APAP 5-325MG TABLET PO PRN (09:36)
[2020-05-09 15:18] VITALS: BP 103/54
--- NOTE | 2020-05-09 18:19 | NUR ---
PATIENT PLEASANT AND COOPERATIVE. VSS. TOLERATED PHYSICAL THERAPY WELL. MEDICATIONS GIVEN AN ORDERED. SAFETY PRECAUTIONS IN PLACE. CALL LIGHT WITHIN REACH. NO S/S OF DISTRESS OR SOB NOTED. ALL NEEDS MET AT THIS TIME.
[2020-05-09 20:00] VITALS: BP 105/53
--- NOTE | 2020-05-09 20:00 | NUR ---
RECEIVED PATIENT AWAKE IN BED. A/O X4. VERY PLEASANT WHEN APPROACHED. DENIES ANY PAIN OR DISCOMFORT. NO RESP. DISTRESS NOTED. VS WNL. CALL LIGHT IN REACH. ALL NEEDS ATTENDED. WILL CONTINUE TO MONITOR AND ASSESS.
[2020-05-09] MEDS: CITALOPRAM 20 MG TABLET PO SCH (20:44)
[2020-05-09] MEDS: ATORVASTATIN 10 MG TABLET PO SCH (20:44)
[2020-05-09] MEDS: DOCUSATE SODIUM 100 MG CAPSULE PO SCH (20:45)
[2020-05-10 04:00] VITALS: BP 99/81
[2020-05-10] MEDS: PANTOPRAZOLE SODIUM 40 MG TABLET.DR PO SCH (06:03)
--- NOTE | 2020-05-10 06:21 | NUR ---
PATIENT ASLEEP IN BED. SLEPT WELL THROUGHOUT THE NIGHT. VSS. BED ALARM ON. CALL LIGHT IN REACH. ALL NEEDS ATTENDED, WILL CONTINUE TO MONITOR AND ASSESS.
[2020-05-10] MEDS: ASPIRIN 81 MG TAB.CHEW PO SCH (08:21)
[2020-05-10] MEDS: HYDROCODONE/APAP 5-325MG TABLET PO PRN (08:21)
--- NOTE | 2020-05-10 08:21 | NUR ---
RECEIVED PATIENT IN BED AWAKE ALERT C/O GENERALISED PAIN MORE SO ON HER BACK STATED DID NOT SLEEP WELL LAST NITE MEDICATED WITH NORCO ORDERED SHE IS ALERT AND ORIENTED BREAKFAST SERVED AND SHE IS FEEDING SELF WITH GOOD APPETITE ABLE TO AMBULATE TO AND FROM THE BATHROOM WITH SLOW BUT STEADY GAIT CALL LIGHTS AND HER PERSONAL BELONGINGS ARE WITHIN EASY REACH AT THIS TIME WILL CONTINUE TO OBSERVE AND PROVIDE COMFORT.
[2020-05-10] MEDS: CARVEDILOL 6.25 MG TABLET PO SCH ×2 (08:22→17:09)
[2020-05-10] MEDS: LOSARTAN POTASSIUM 25 MG TABLET PO SCH (08:22)
[2020-05-10 08:24] VITALS: BP 108/58
--- NOTE | 2020-05-10 14:47 | NUR ---
PATIENT CONTINUES WITH PHYSICAL THERAPEUTIC EXERCISES AND ADL RETRAINING PROGRAMS ORDERED WITH FAIR ENDURANCE AT THIS TIME.WILL CONTINUE TO OBSERVE.
[2020-05-10 16:00] VITALS: BP 103/50
--- NOTE | 2020-05-10 18:00 | NUR ---
PATIENT RESTING COMFORTABLE IN BED JUST FINISHED DINNER EXCITED THAT SHE WILL BE GOING HOME TOMORROW WILL ENDORSE FOR PATIENT TO GET AN ANALGESIC TONITE TO ASSIST HER TO RELAX BETTER.CALL LIGHT AND HER PERSONAL BELONGINGS ARE WITHIN EASY REACH.WILL CONTINUE TO OBSERVE.
[2020-05-10] MEDS: CITALOPRAM 20 MG TABLET PO SCH (20:06)
[2020-05-10] MEDS: ATORVASTATIN 10 MG TABLET PO SCH (20:06)
[2020-05-10] MEDS: DOCUSATE SODIUM 100 MG CAPSULE PO SCH (20:06)
[2020-05-10 20:35] VITALS: BP 113/53
--- NOTE | 2020-05-10 21:22 | NUR ---
Received pt resting in bed and watching tv. AAO x4. No acute distress noted. Denies pain/ discomfort. Due meds given as ordered. Pt will be discharge tomorrow. Safety measures maintained. Call light and personal items within reach. Will continue to monitor.
[2020-05-11 04:52] VITALS: BP 124/58
[2020-05-11] MEDS: PANTOPRAZOLE SODIUM 40 MG TABLET.DR PO SCH (06:07)
[2020-05-11 08:00] VITALS: BP 124/73
[2020-05-11] MEDS: ASPIRIN 81 MG TAB.CHEW PO SCH (08:36)
[2020-05-11] MEDS: CARVEDILOL 6.25 MG TABLET PO SCH (08:38)
[2020-05-11] MEDS: LOSARTAN POTASSIUM 25 MG TABLET PO SCH (08:38)
--- NOTE | 2020-05-11 09:45 | NUR ---
Received pt in bed, easily arousable, A&Ox4, able to verbalize needs. No acute distress. Pt on RA, O2 saturation 95%. VSS. Pt denies pain/discomfort at this time. Medications given per order, no a/r noted. Pt to be discharged home with [facility], pt aware and willing. Safety measures and fall precautions in place. Call light and belongings within reach. Will continue to monitor.
--- NOTE | 2020-05-11 16:10 | NUR ---
DISCHARGE NOTE: Assisted pt safely to lobby via at 1605. Pt A&Ox4, NAD, on RA, VSS. Skin intact. All needs attended to. Belongings and valuables accounted for. Pt denied missing items. Discharge prescriptions provided to pt. Pt picked up via private transportation with son-in-law [place]. Pt discharged home with [facility]. Instructions provided to pt, verbalized understanding. Pt assisted safely into vehicle.
[2020-05-11 16:31] VITALS: BP 137/71
== END 2020-05-11 16:05 | disposition home health service (06) | DRG 292 ==
PROVIDERS: ADMIT Physical Medicine & Rehabilitation Pain Medicine; ATTEND Physical Medicine & Rehabilitation Pain Medicine
DX: I11.0 Hypertensive heart disease with heart failure (principal); I24.9 Acute ischemic heart disease, unspecified; I50.43 Acute on chronic combined systolic (congestive) and diastolic (congestive) heart failure; G89.4 Chronic pain syndrome; I34.0 Nonrheumatic mitral (valve) insufficiency; I44.7 Left bundle-branch block, unspecified; M06.9 Rheumatoid arthritis, unspecified; M19.90 Unspecified osteoarthritis, unspecified site; M51.36 Other intervertebral disc degeneration, lumbar region; N32.81 Overactive bladder; Z91.81 History of falling; Z96.643 Presence of artificial hip joint, bilateral; R53.1 Weakness; M54.9 Dorsalgia, unspecified; Z87.440 Personal history of urinary (tract) infections; I42.9 Cardiomyopathy, unspecified; Z88.8 Allergy status to other drugs, medicaments and biological substances; Z88.1 Allergy status to other antibiotic agents; Z88.3 Allergy status to other anti-infective agents; Z88.0 Allergy status to penicillin; Z91.013 Allergy to seafood; R26.9 Unspecified abnormalities of gait and mobility
CPT/HCPCS: A4663

== ENCOUNTER 2020-06-17 05:39 | Emergency (ER) | payer MEDICARE, OTHER ==
[~2020-06-17] VITALS: Ht 170.2 cm; Wt 61.7 kg
[~2020-06-17 05:39] MED LIST changes: +ACET-2154 PO; -AMIT50TA3 PO; +ATOR40TA PO; +CARV6.25 PO; +DOCU250C14 PO; -INDO75CA3 PO; +LOSA25TA27 PO; -LOVA40TA2 PO; +MORP1SYR2 IVP; +ZOLP5TAB2 PO
[2020-06-17 06:23] LABS: BASOPHILS # (AUTO) 0.1 K/uL (0.0-8.0); BASOPHILS % (AUTO) 1.3 % (0.0-2.0); EOSINOPHILS # (AUTO) 0.4 K/uL (0.0-0.7); EOSINOPHILS % (AUTO) 7.3 % (0.0-7.0); HEMATOCRIT 39.1 % (31.2-41.9); HEMOGLOBIN 12.8 g/dL (10.9-14.3); LYMPHOCYTES # (AUTO) 1.2 K/uL (20.0-40.0); LYMPHOCYTES % (AUTO) 21.7 % (20.5-51.5); MEAN CORPUSCULAR HEMOGLOBIN 28.4 uug (24.7-32.8); MEAN CORPUSCULAR HGB CONC 33 g/dL (32.3-35.6); MEAN CORPUSCULAR VOLUME 86.6 fL (75.5-95.3); MONOCYTES # (AUTO) 0.5 K/uL (2.0-10.0); MONOCYTES % (AUTO) 8.4 % (0.0-11.0); NEUTROPHILS # (AUTO) 3.5 K/uL (1.8-8.9); NEUTROPHILS % (AUTO) 61.3 % (38.5-71.5); PLATELET COUNT (AUTO) 217 K/uL (179-408); RED BLOOD CELL COUNT(AUTO) 4.52 MIL/uL (3.63-4.92); WHITE BLOOD COUNT (AUTO) 5.7 K/uL (3.8-11.8)
--- NOTE | 2020-06-17 06:30 | NUR ---
85 y/o female brought in by her [facility] for home for SOB that has persisted for 2 weeks. She spoke with her Lockstitch Lining Setter Dr. Pereyra who told her to come by and get checked. Patient is A&Ox3/4. Able to take commands. No SI/HI. Patient uses a walker to ambulate. Sinus Rhythm on the monitor. No CP, no palpitations, no diaphoresis. Blood pressure nonremarkable. Patient is saturating >94% on Room Air. Mentions that her SOB "has improved since kenzie been here". No N/V/D.
[2020-06-17 06:44] LABS: POTASSIUM 4.4 mmol/L (3.5-5.1)
[2020-06-17 06:57] LABS: BILIRUBIN,DIRECT 0.2 mg/dL (0.0-0.2); BILIRUBIN,TOTAL 0.5 mg/dL (0.2-1.0); TOTAL PROTEIN, SERUM 6.6 g/dL (6.4-8.2)
[2020-06-17] MEDS ORDERED: FURO-151 PO (07:26)
[2020-06-17] MEDS ORDERED: FUROSEMIDE 40 MG/4 ML VIAL ONE (07:28)
[2020-06-17] MEDS ORDERED: FUROSEMIDE 40 MG/4 ML VIAL IV ONE (07:30)
[2020-06-17 07:33] VITALS: BP 130/75
--- NOTE | 2020-06-17 07:34 | NUR ---
Patient discharged to home in stable condition. Instructed to take medication and follow up with PCP. Written and verbal after care instructions given. Patient states she feels better and wants to go home. Patient verbalizes understanding of instructions. Stressed follow up or return to ER for worsening s/s.
== END 2020-06-17 07:35 | disposition home or self-care (01) ==
LOC: ER 05:43
DX: I11.0 Hypertensive heart disease with heart failure (principal); I50.9 Heart failure, unspecified; J98.11 Atelectasis; Z20.822 Contact with and (suspected) exposure to COVID-19; R79.89 Other specified abnormal findings of blood chemistry; I44.7 Left bundle-branch block, unspecified; E78.5 Hyperlipidemia, unspecified; K21.9 Gastro-esophageal reflux disease without esophagitis; G89.29 Other chronic pain; Z79.82 Long term (current) use of aspirin; Z79.899 Other long term (current) drug therapy; Z88.1 Allergy status to other antibiotic agents; Z88.0 Allergy status to penicillin; Z91.013 Allergy to seafood
CPT/HCPCS: 36415; 71045; 80048; 80076; 83880; 84484; 85025; 85730; 87426; 93005; 96374; 99285; J1940; 70030-TC; A4663

== ENCOUNTER 2021-01-30 12:21 | Emergency (ER) | payer MEDICARE, OTHER ==
[~2021-01-30] VITALS: Ht 170.2 cm; Wt 56.7 kg
[~2021-01-30 12:21] MED LIST changes: -ACET325T53 PO; -ATOR40TA PO; -CARV6.25 PO; -DOCU250C14 PO; +FURO-151 PO; -MORP1SYR2 IVP; -ZOLP5TAB2 PO
[2021-01-30] MEDS ORDERED: IV NORMAL SALINE 500 ML BAG IV ONE (12:45)
[2021-01-30 13:09] LABS: HEMATOCRIT 36.3 % (31.2-41.9); MEAN CORPUSCULAR HEMOGLOBIN 30.3 uug (24.7-32.8); MEAN CORPUSCULAR VOLUME 89.6 fL (75.5-95.3); PLATELET COUNT (AUTO) 200 K/uL (179-408)
[2021-01-30 13:11] LABS: CARBON DIOXIDE 30 mmol/L (21-32); CHLORIDE 106 mmol/L (98-107); CREATININE 1.3 mg/dL (0.6-1.3); GLUCOSE 97 mg/dL (74-106); UREA NITROGEN, BLOOD 32 mg/dL (7-18)
[2021-01-30 13:17] LABS: ALANINE AMINOTRANSFERASE 20 U/L (14-59); ALKALINE PHOSPHATASE 83 U/L (50-136); ASPARTATE AMINOTRANSFERASE 22 U/L (15-37); BILIRUBIN,TOTAL 0.5 mg/dL (0.2-1.0); CREATINE KINASE, TOTAL 48 U/L (26-192); TOTAL PROTEIN, SERUM 6.6 g/dL (6.4-8.2)
[2021-01-30 19:40] VITALS: BP 102/78
== END 2021-01-30 17:30 | disposition home or self-care (01) ==
LOC: ER 12:21
DX: Z04.3 Encounter for examination and observation following other accident (principal); G89.29 Other chronic pain; M54.2 Cervicalgia; I11.0 Hypertensive heart disease with heart failure; I50.9 Heart failure, unspecified; R29.6 Repeated falls; K21.9 Gastro-esophageal reflux disease without esophagitis; E78.5 Hyperlipidemia, unspecified; R41.3 Other amnesia; Z88.1 Allergy status to other antibiotic agents; Z88.0 Allergy status to penicillin; Z91.013 Allergy to seafood
CPT/HCPCS: 36415; 70450; 72125; 85025; A4663; J7030